=== PATIENT | female | born 1955 | race Caucasian/White ===

== ENCOUNTER → 2018-03-11 06:57 | Outpatient (CLI) | payer OTHER, SELFPAY | PROVIDERS: Family Provider Nurse Practitioner Family; PCP Nurse Practitioner Family; Visit Provider Nurse Practitioner Family | DX: Z12.31 Encounter for screening mammogram for malignant neoplasm of breast (principal) | CPT/HCPCS: 77063; 77067 ==

== ENCOUNTER → 2019-02-27 | Outpatient (CLI) | payer OTHER, SELFPAY ==
[2019-02-27 08:44] LABS: Absolute Neutrophil Count 1.4 X10^3/uL (2.0-7.7); Basophil# 0.01 X10^3/uL; Basophil% 0.3 % (0-1); Eosinophil# 0.02 X10^3/uL; Eosinophils% 0.5 % (0-5); Hematocrit 38.1 % (37-47); Hemoglobin 12.9 g/dL (12.0-15.0); Lymphocyte % 48.4 % (19-41); Mean Corp Hgb Conc 33.9 g/dL (32-36); Mean Corpuscular Hgb 32.2 pg (27.0-32.0); Mean Platelet Vol. 9.2 fl (6.2-12.0); Monocyte# 0.45 X10^3/uL; Monocyte% 12.1 % (0-10); NRBC Flagged by Analyzer 0 % (0-5); Neutrophil # 1.44 X10^3/uL (2.7-7.7); Neutrophil % 38.7 % (47-70); Platelet Count 126 K/mm3 (150-450); RBC Distribution Width CV 12.6 % (11.6-14.6); RBC Distribution Width SD 43.8 fl (35.1-43.9); Red Blood Count 4.01 M/mm3 (4.2-5.4); White Blood Count 3.7 K/mm3 (4.4-11.0)
[2019-02-27 09:20] LABS: ALB/GLOB Ratio 1.1 RATIO (0.9-2.4); AST(SGOT) 16 U/L (15-37); Alanine Aminotransfer ALT/SGPT 25 U/L (13-56); Albumin, Serum 3.8 g/dL (3.2-5.0); Alkaline Phosphatase 67 U/L (45-117); Anion Gap 6 (5-15); BUN 12 mg/dL (7-18); BUN/Creat Ratio 13.7 RATIO (10-20); Calcium,Total 8.6 mg/dL (8.5-10.1); Chloride 106 mmol/L (98-107); Cholesterol 170 mg/dL (200); Creatinine, Serum 0.88 mg/dL (0.55-1.02); EST Glomerular Filtration Rate 70 mL/min (>60); Est Glom Filt Rate - Afr Amer 84 mL/min (>60); Globulin 3.5 g/dL (2.2-4.2); Glucose 101 mg/dL (74-106); High Density Lipoprotein 52 mg/dL; Potassium 3.9 mmol/L (3.5-5.1); Protein, Total 7.3 g/dL (6.4-8.2); Sodium Level 140 mmol/L (136-145); Thyroid Stim Hormone (TSH) 1.64 uIU/mL (0.358-3.74); Triglycerides 145 mg/dL; Very Low Density Lipoprotein 29 mg/dL (5-40); Vitamin D,25 Hydroxy 68.6 ng/mL (29.95-100.01)
== END | disposition home or self-care (01) ==
LOC: LAB.FUTURE 08:12
PROVIDERS: Family Provider Nurse Practitioner Family; PCP Nurse Practitioner Family; Referring Provider Nurse Practitioner Family; Visit Provider Nurse Practitioner Family
DX: E55.9 Vitamin D deficiency, unspecified (principal); E03.9 Hypothyroidism, unspecified; I10 Essential (primary) hypertension; E78.5 Hyperlipidemia, unspecified
CPT/HCPCS: 36415; 80053; 80061; 82306; 84439; 84443; 85025

== ENCOUNTER → 2019-09-08 07:48 | Outpatient (CLI) | payer OTHER, SELFPAY ==
[2019-09-08 08:42] LABS: Hematocrit 37.3 % (37-47); Hemoglobin 12.8 g/dL (12.0-15.0); Mean Corp Hgb Conc 34.3 g/dL (32-36); Mean Corpuscular Hgb 31.8 pg (27.0-32.0); Mean Corpuscular Volume 92.8 fL (81-99); Mean Platelet Vol. 9.5 fl (6.2-12.0); Platelet Count 147 K/mm3 (150-450); RBC Distribution Width CV 12.4 % (11.6-14.6); RBC Distribution Width SD 42.5 fl (35.1-43.9); Red Blood Count 4.02 M/mm3 (4.2-5.4); White Blood Count 4.4 K/mm3 (4.4-11.0)
[2019-09-08 09:10] LABS: ALB/GLOB Ratio 1.1 RATIO (0.9-2.4); AST(SGOT) 13 U/L (15-37); Alanine Aminotransfer ALT/SGPT 27 U/L (13-56); Albumin, Serum 3.9 g/dL (3.2-5.0); Alkaline Phosphatase 70 U/L (45-117); Anion Gap 4 (5-15); BUN 13 mg/dL (7-18); BUN/Creat Ratio 14.8 RATIO (10-20); Calcium,Total 8.6 mg/dL (8.5-10.1); Chloride 106 mmol/L (98-107); Cholesterol 177 mg/dL (200); Creatinine, Serum 0.88 mg/dL (0.55-1.02); EST Glomerular Filtration Rate 69 mL/min (>60); Est Glom Filt Rate - Afr Amer 84 mL/min (>60); Globulin 3.5 g/dL (2.2-4.2); Glucose 98 mg/dL (74-106); High Density Lipoprotein 48 mg/dL; Potassium 3.9 mmol/L (3.5-5.1); Protein, Total 7.4 g/dL (6.4-8.2); Sodium Level 141 mmol/L (136-145); T4 Free Direct 0.96 ng/dL (0.76-1.46); Thyroid Stim Hormone (TSH) 1.31 uIU/mL (0.358-3.74); Triglycerides 135 mg/dL; Very Low Density Lipoprotein 27 mg/dL (5-40)
[2019-09-09 08:52] LABS: Vitamin D,25 Hydroxy 88.3 ng/mL
== END ==
PROVIDERS: PCP Nurse Practitioner Family; Referring Provider Nurse Practitioner Family; Visit Provider Nurse Practitioner Family
DX: I10 Essential (primary) hypertension (principal); E03.9 Hypothyroidism, unspecified; E78.5 Hyperlipidemia, unspecified; E55.9 Vitamin D deficiency, unspecified
CPT/HCPCS: 36415; 80053; 80061; 82306; 84439; 84443; 85027

== ENCOUNTER → 2019-09-17 15:27 | Outpatient (CLI) | payer OTHER, SELFPAY ==
--- NOTE | 2019-09-17 15:30 | BI_ITS ---
MAMMOGRAPHY - BILATERAL SCREENING REASON FOR EXAM: Female, 64 years old. Routine annual screening examination. PERTINENT HISTORY: Non-contributory. TECHNIQUE: Digital bilateral breast paz (3D mammographic acquisition) in the CC and MLO projections. 2-D mediolateral oblique (MLO) and craniocaudad (CC) views of both breasts were obtained. CAD: Full Field Digital Mammography with Computer Added Detection was performed. COMPARISON: Comparison is made with prior examination dated March 11, 2018. FINDINGS: Breast Composition: The breasts are heterogeneously dense, which may obscure small masses. There are no dominant masses or suspicious calcifications. 2 tissue markers are seen in the left breast. One is located in the upper deep lateral and the second is in the upper mid medial portion of the left breast. Stable benign-appearing bilateral axillary lymph nodes. No other significant abnormalities are identified. There has been no significant change since the prior study. BI/SCREEN MAMM (CAD) W/PAZ BILAT IMPRESSION: Stable bilateral screening mammogram. Yearly follow-up mammogram recommended. (A) ASSESSMENT CATEGORY: BIRADS Category 2: Benign. A letter regarding these results will be sent to the patient by the facility within 30 days. Approximately 10% of breast cancers are not detected by mammography. A normal mammogram should not delay biopsy of a clinically suspicious abnormality. [id number] Electronically Signed: Cesario Tavares, at 9:16 EST , Service support ,
== END ==
PROVIDERS: PCP Nurse Practitioner Family; Referring Provider Nurse Practitioner Family; Visit Provider Nurse Practitioner Family
DX: Z12.31 Encounter for screening mammogram for malignant neoplasm of breast (principal)
CPT/HCPCS: 77063; 77067

== ENCOUNTER → 2020-03-11 08:05 | Outpatient (CLI) | payer OTHER, SELFPAY ==
[2020-03-11 09:14] LABS: Hemoglobin 13.1 g/dL (12.0-15.0); Mean Corp Hgb Conc 33.6 g/dL (32-36); Mean Corpuscular Volume 95.4 fL (81-99); Mean Platelet Vol. 9.5 fl (6.2-12.0); Platelet Count 161 K/mm3 (150-450); RBC Distribution Width CV 12.6 % (11.6-14.6); RBC Distribution Width SD 43.8 fl (35.1-43.9); Red Blood Count 4.09 M/mm3 (4.2-5.4); White Blood Count 4.5 K/mm3 (4.4-11.0)
[2020-03-11 09:37] LABS: Vitamin D,25 Hydroxy 87.9 ng/mL
[2020-03-11 09:40] LABS: ALB/GLOB Ratio 1.1 RATIO (0.9-2.4); AST(SGOT) 14 U/L (15-37); Alanine Aminotransfer ALT/SGPT 24 U/L (13-56); Alkaline Phosphatase 78 U/L (45-117); Anion Gap 4 (5-15); BUN 11 mg/dL (7-18); BUN/Creat Ratio 13.3 RATIO (10-20); Calcium,Total 8.6 mg/dL (8.5-10.1); Chloride 104 mmol/L (98-107); Cholesterol 187 mg/dL (200); Creatinine, Serum 0.83 mg/dL (0.55-1.02); EST Glomerular Filtration Rate 74 mL/min (>60); Est Glom Filt Rate - Afr Amer 89 mL/min (>60); Globulin 3.5 g/dL (2.2-4.2); Glucose 105 mg/dL (74-106); High Density Lipoprotein 48 mg/dL; Potassium 4.2 mmol/L (3.5-5.1); Protein, Total 7.5 g/dL (6.4-8.2); Sodium Level 139 mmol/L (136-145); Thyroid Stim Hormone (TSH) 4.97 uIU/mL (0.358-3.74); Triglycerides 151 mg/dL; Very Low Density Lipoprotein 30 mg/dL (5-40)
[2020-03-11 09:48] LABS: Microalbumin,Random Urine 41.6 mg/L (NO RANGE EST.); Microalbumin:Creatinine Ratio 27.2 mg/g CRE (<30 mg/g CRE)
== END ==
PROVIDERS: PCP Nurse Practitioner Family; Referring Provider Nurse Practitioner Family; Visit Provider Nurse Practitioner Family
DX: I10 Essential (primary) hypertension (principal); E03.9 Hypothyroidism, unspecified; E78.5 Hyperlipidemia, unspecified; E55.9 Vitamin D deficiency, unspecified
CPT/HCPCS: 36415; 80053; 80061; 82043; 82306; 82570; 84439; 84443; 85027

== ENCOUNTER 2020-05-31 19:36 | Inpatient (IN) | payer OTHER, SELFPAY ==
[2020-05-31] VITALS (9 sets, daily range): BP systolic 113–159; BP diastolic 71–90; PULSE 76–107; RESP 16–27; TEMP 37.2–38.9; O2SAT 86–96; BMI 32.5; BMI 30.4
[2020-05-31] MEDS: Ondansetron 4 MG/2 ML Vial IV (20:15)
[2020-05-31] MEDS: Acetaminophen 500 MG Tablet 1000 MG PO (20:18)
--- NOTE | 2020-05-31 20:30 | RAD_ITS ---
STUDY: X-RAY CHEST REASON FOR EXAM: Female, 65 years old. INCREASED SOB. PATIENTS TESTED POSITIVE COVID ON SUNDAY. TECHNIQUE: AP portable COMPARISON: None. FINDINGS: There is interstitial thickening with diffusely increased density in the right lower lobe and more severe in the left lower lobe consistent with Covid 19 pneumonia There is no demonstrated pleural abnormality. Normal size heart. Normal mediastinum and dc. Normal visualized pulmonary arteries. Normal visualized aortic arch and descending thoracic aorta. Normal visualized thoracic spine. Normal visualized ribs, clavicles, and shoulders. There is no demonstrated abnormality of the visualized soft tissue structures of the upper abdomen. RAD/Chest 1 View (Portable) IMPRESSION: Findings consistent with Covid 19 pneumonia in the lower lobes more severe on the left. Electronically Signed: Dayton Lugo MD at 20:55 EST , Service support ,
[2020-05-31 20:37] LABS: Absolute Lymphocyte Count 1.08 X10^3/uL (0.83-4.51); Absolute Neutrophil Count 3.5 X10^3/uL (2.0-7.7); Hematocrit 39.1 % (37-47); Lymphocyte # 1.08 X10^3/ul (4.0); Lymphocyte % 22.1 % (19-41); Mean Corp Hgb Conc 33.2 g/dL (32-36); Mean Corpuscular Hgb 31.4 pg (27.0-32.0); Mean Corpuscular Volume 94.4 fL (81-99); Mean Platelet Vol. 9.4 fl (6.2-12.0); Monocyte# 0.28 X10^3/uL; Monocyte% 5.7 % (0-10); NRBC Flagged by Analyzer 0 % (0-5); Neutrophil # 3.51 X10^3/uL (2.7-7.7); Neutrophil % 71.8 % (47-70); Platelet Count 127 K/mm3 (150-450); RBC Distribution Width CV 12.3 % (11.6-14.6); Red Blood Count 4.14 M/mm3 (4.2-5.4); White Blood Count 4.9 K/mm3 (4.4-11.0)
[2020-05-31 20:51] LABS: Lactic Acid 1.2 mmol/L (0.4-1.9)
[2020-05-31 21:03] LABS: ALB/GLOB Ratio 0.8 RATIO (0.9-2.4); AST(SGOT) 23 U/L (15-37); Alanine Aminotransfer ALT/SGPT 22 U/L (13-56); Albumin, Serum 3.3 g/dL (3.2-5.0); Alkaline Phosphatase 51 U/L (45-117); Anion Gap 9 (5-15); BUN 14 mg/dL (7-18); BUN/Creat Ratio 16.7 RATIO (10-20); CPK Total, Creatine Kinase 53 U/L (26-192); Calcium,Total 8.6 mg/dL (8.5-10.1); Chloride 103 mmol/L (98-107); Creatinine, Serum 0.84 mg/dL (0.55-1.02); EST Glomerular Filtration Rate 73 mL/min (>60); Est Glom Filt Rate - Afr Amer 88 mL/min (>60); Globulin 4.3 g/dL (2.2-4.2); Glucose 100 mg/dL (74-106); LDH 332 U/L (84-246); Potassium 3.6 mmol/L (3.5-5.1); Protein, Total 7.6 g/dL (6.4-8.2); Sodium Level 138 mmol/L (136-145)
[2020-05-31 21:10] LABS: Fibrinogen 636 mg/dl (203-444)
[2020-05-31 21:12] LABS: D-Dimer Quantitative (DVT/PE) 0.42 FEU/ug/m (0.27-0.49)
[2020-05-31 21:18] LABS: Procalcitonin 0.06 ng/mL (0.00-0.09)
[2020-05-31 21:29] LABS: Probe Check PASS; Specimen Processing Control PASS
--- NOTE | 2020-05-31 21:32 | ED.VISSUMM ---
- ER Visit Summary Date of Service: 05/31/20 Chief Complaint: Cough History of Present Illness: The patient is a 65 F who sees Cem Dickinson. She reports that she has a cough began 2 days ago. She reports that her tested positive for Covid on . Patient states that she is had a fever to 100 degrees. She also had chills. She has chest pain with coughing only. She reports she has severe shortness of breath. She had nausea without vomiting or abdominal pain. No diarrhea. She complains of a sharp headache that 6 out of 10 in severity and generalized weakness. Physical Examination: Vitals: 112.1, 139/87, 107, 24, 91% on room air which is not hypoxic General: Well-nourished and well-developed. Head: Normocephalic atraumatic. Neck: Supple, no lymphadenopathy. No JVD. Nontender. Cardiovascular: Tachycardic regular rhythm. No murmurs. Respiratory: Moderate respiratory distress with crackles at the bases bilaterally. Abdominal: Soft, nontender, nondistended, normal bowel sounds. No guarding, rebound, or peritoneal signs. Back: Nontender. Extremities: Nontender, no edema. Skin: Normal color, no rash. Neurologic: Alert and oriented ?3. Cranial nerves II through XII are intact. Normal strength and sensation. Psych: Normal affect. Test Results: CBC shows platelets 127, second neutrophils 72. Chem-7 is normal. LFTs show globulin 4.3 and LDH of 332. D-dimer is negative. CRP is 71.8. Fibrinogen level 636. Procalcitonin 0.06. COVID-19 test is positive. Clinical Impression(s) from Imaging Studies Chest X-Ray 05/31/20 20:30 IMPRESSION: Findings consistent with Covid 19 pneumonia in the lower lobes more severe on the left. Electronically Signed: Dayton Lugo MD at 20:55 EST , Service support , Emergency Department Course and Treatment: Patient was given Tylenol p.o. for her fever. She was given Zofran and dexamethasone IV. Pulse ox was 84% on room air with ambulation. She is in the mid 90s on 2 L. She is resting more comfortably. Treatment Plan: Patient was discussed with Dr. Vieira. She will be admitted to the hospital for further evaluation and treatment. Disposition: Admitted in improved, but serious condition. Impression: 1. COVID-19 positive. 2. Hypoxia. This note was generated with [employer] dictation software. It may contain incorrect words, spelling, and punctuation that were not noted in review of the chart prior to signing ED Disposition - Plan for ED Patient:
[2020-05-31] MEDS: dexAMETHasone 4 MG/ML Vial 6 MG IV (21:47)
--- NOTE | 2020-05-31 22:03 | HP.PCM_ITS ---
Problem List (1) Pneumonia due to 2019 novel coronavirus Status: Acute (2) Hypoxia Status: Acute (3) HTN (hypertension) Status: Chronic Qualifiers: Hypertension type: essential hypertension Qualified Code(s): I10 - Essential (primary) hypertension (4) HLD (hyperlipidemia) Status: Chronic Qualifiers: Hyperlipidemia type: unspecified Qualified Code(s): E78.5 - Hyperlipidemia, unspecified (5) Hypothyroidism Status: Chronic Qualifiers: Hypothyroidism type: unspecified Qualified Code(s): E03.9 - Hypothyroidism, unspecified History of Present Illness Date of Admission: 05/31/20 Chief Complaint: Dyspnea, cough, presumptive positive COVID The patient is a 65 y/o F w/ PMHx: Obesity, Hypothyroidism, HTN, HLD who presents to the [facility] ED on 05/31/20 with history of onset frontal throbbing headache, body aches, worse bilateral shoulders and neck, nausea with no emesis or diarrhea, dry cough with dyspnea progressively worsening with fevers with onset approximately 05/24/2010 with onset of symptoms the prior diagnosed with Covid therefore she was a presumed positive although she did see her physician on 05/25/2020 who gave for steroids and a Z-Deric at that time but she had no improvement. Patient never had any alteration to sense of taste or smell. Given her 's worsening status and her own worsening status patient presented to the ED for evaluation. 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 She notes that both her and her have been wearing masks. Work- up in the ED included T1 102.1, heart rate 107, BP 139/87, respiratory rate 24, 91% on room air with gently noted 84% on room air with ambulation with imp rovement to 96 on 2 L nasal cannula, CBC with WC 4.9, hemoglobin 13, platelet 127 without marked shift, D-dimer 0.42, fibrinogen 636, CMP not marked appearing, lactic acid 1.2, LDH 332, total creatinine kinase 53, CRP 71.80, procalcitonin 0.06, Covid positive, blood culture x2 pending per ED, chest x-ray with findings consistent with COVID-19 pneumonia in the lower lobes more severe on the left. In the ED patient ministered Zofran, Tylenol, Decadron 6 mg IV x1. Past Medical History Past Medical History (Chronic Problems): Chronic Problems HTN (hypertension) (Chronic) HLD (hyperlipidemia) (Chronic) Hypothyroidism (Chronic) Allergies clindamycin Adverse Reaction (Verified 05/31/20 19:40) Hives combid Adverse Reaction (Uncoded 05/31/20 19:40) NEEDS FOLLOW-UP almost killed me Home Medications: Ambulatory Orders Medication Instructions Recorded Azithromycin 500 mg PO DAILY 05/31/20 Levothyroxine [Synthroid] 112 mcg PO DAILY 05/31/20 Methylprednisolone [Medrol] 4 mg PO DAILY 05/31/20 Simvastatin 20 mg PO DAILY 05/31/20 Zinc Sulfate 220 mg PO DAILY 05/31/20 Surgical History: - - Total abdominal hysterectomy with bilateral salpingo- oophorectomy and right knee arthroscopic surgery. Psychiatric History: No pertinent psych hx RESIDENTIAL TREATMENT STAFF History: - - History of total abdominal hysterectomy with bilateral salpingo-oophorectomy secondary to tumor, unclear type. Lives: Spouse/ Significant Other Smoking Status: Never smoker Tobacco Use: Non-smoker Alcohol: None Drugs: None - *Family History Maternal History Items: Pulmonary Disease - Patient notes her mother passed secondary to a history of lung cancer with significant tobacco use history. Paternal History Items: Heart Disease Review of Systems Constitutional: Reports: Anorexia, Fever, Malaise, Weakness, Fatigue. Denies: Chills, Weight Change HEENT: Reports: Head Aches. Denies: Sinus Congestion, Sinus Drainage Cardiovascular: Denies: Chest Pain, Palpitations Respiratory: Reports: Cough, Shortness of Breath, Shortness of breath at rest, Shortness of breath upon exertion. Denies: Sputum production Gastrointestinal: Reports: Nausea. Denies: Abdominal Pain, Vomiting Genitourinary: Denies: Dysuria Musculoskeletal: Reports: Back Pain, Joint Pain, Neck Pain, Shoulder Pain. Denies: Joint Tenderness Skin: Denies: Rash, Wounds Neurological: Denies: Numbness, Tingling, Focal weakness Psychiatric: Denies: Anxiety, Depression, Homicidal Ideations, Suicidal Ideations Hematologic/ Lymphatic: Denies: Easy Bruising, Easy Bleeding VTE Information - Inpt Only VTE Present on Admission: No VTE Mechan Device Prophylaxis: SCD's VTE Pharm Prophylaxis ordered?: Yes Subjective: Patient seated upright in ED bed, fatigued appearance otherwise no acute distress. Objective: Physical Examination: General: awake, alert, oriented x 3 and cooperative, seated upright in the ED bed, fatigued and ill-appearing. Skin: normal color, turgor, no icterus, cyanosis. HEENT: AT/NC, EOMI, PERRLA, dry MM, no carotid bruits or JVD noted. Lungs: Diminished breath sounds, greater bases, left greater than right, mildly increased respiratory rate but no overt distress, no rales, ronchi or wheezing. Heart: Mildly tachycardic with regular rhythm; no gallop, rub audible. Abdomen: soft, obese, NTTP, ND, normal BS, no HSM. Extremities: no cyanosis, clubbing, or edema. Neurological: patient awake, alert, oriented x 3; cognitive function intact; pupils equally reactive to light and accomodation; cranial nerves II-XII grossly normal, moving all 4 extremities, no focal deficits, strength moderately to severely globally decreased secondary to acute presentation. Psychiatric: affect appears fatigued, no acute evidence of depressive or anxiety feelings. - Physical Exam Vitals/I&O's: Vital Signs Temp Pulse Resp BP Pulse Ox 102.1 F H 78 16 159/90 H 96 05/31/20 19:37 05/31/20 21:09 05/31/20 21:09 05/31/20 21:09 05/31/20 21:09 Oxygen Flow Rate (L/min) 2 Oxygen Delivery Method Nasal Cannula Weight: 190 lb Body Mass Index (BMI) 32.5 Laboratory Results 05/31/20 20:05: COVID-19 ([facility]) Positive 05/31/20 20:10: Fibrinogen 636 H, D-Dimer Quant (PE/DVT) 0.42 05/31/20 20:10: Sodium 138, Potassium 3.6, Chloride 103, Carbon Dioxide 26.0, Anion Gap 9, BUN 14, Creatinine 0.84, Estim Creat Clear Calc 59.20, Est GFR (MDRD) Af Amer 88, Est GFR (MDRD) Non-Af 73, BUN/Creatinine Ratio 16.7, Glucose 100, Calcium 8.6, Total Bilirubin 0.40, AST 23, ALT 22, Alkaline Phosphatase 51, Lactate Dehydrogenase 332 H, Total Creatine Kinase 53, C-React Prot Ext Range 71.80 H, Total Protein 7.6, Albumin 3.3, Globulin 4.3 H, Albumin/Globulin Ratio 0.8 L 05/31/20 20:10: Procalcitonin 0.06 05/31/20 20:10: WBC 4.9, RBC 4.14 L, Hgb 13.0, Hct 39.1, MCV 94.4, MCH 31.4, MCHC 33.2, RDW Std Deviation 43.0, RDW Coeff of Osvaldo 12.3, Plt Count 127 L, MPV 9.4, Immature Gran % (Auto) 0.400, Neut % (Auto) 71.8 H, Lymph % (Auto) 22.1, Kent % (Auto) 5.7, Eos % (Auto) 0.0, Baso % (Auto) 0.0, Absolute Neuts (auto) 3.5, Absolute Lymphs (auto) 1.08, Nucleated RBC % 0 05/31/20 20:10: Lactic Acid 1.2 Assessment/Plan All Active Problems Pneumonia due to 2019 novel coronavirus (Acute) Hypoxia (Acute) The patient is a 65 y/o F w/ PMHx: Obesity, Hypothyroidism, HTN, HLD who presents to the [facility] ED on 05/31/20 with history of onset frontal throbbing headache, body aches, worse bilateral shoulders and neck, nausea with no emesis or diarrhea, dry cough with dyspnea progressively worsening with fevers with onset approximately 05/24/2010, progressively worsening. 1. Acute Hypoxia secondary to Bilateral Pneumonia secondary to Acute Viral Syndrome, COVID-19: Will admit to the COVID unit, will maintain on oxygen with wean as tolerated to room air, HOB, IS parameters, requested viral panel, given worsened status with presentation will obtain QOD procalcitonin, CRP, CPK, Ferritin, LDH, continue Decadron 6 mg with a total of 10 doses, continue supportive care including q 2 hour turning including prone given no prone bed av ailability and judicious hydration, closely monitor for worsening status for ARDS and multiorgan failure. Infectious disease consulted, pending. 2. Hypothyroidism: Continue home synthroid regimen. 3. Hypertension: Continue home regimen including amlodipine, benazepril, PRN hydralazine. 4. Hyperlipidemia: Continue home statin regimen. 5. Obesity: Weight loss and lifestyle changes encouraged. 6. DVT prophylaxis: SCDs, Lovenox. 7. CODE status: Patient HCPOA is her spouse and living will is currently in place. Discussed CODE status at length including difference between FULL code, D NR-CCA and DNR-CC status. Following discussions about the differences in these status, requested Full Code status. Advanced Care Planning Face to Face Time: 16 minutes. Inpatient E&M: 29401 Init Hosp L3 Procedures: 21888 Advncd Care Plan 30 Min
[2020-05-31] MEDS: Ketorolac 15 MG/ML Vial IV (23:50)
[2020-05-31] MEDS: tiZANidine HCl 2 MG Tablet PO (23:50)
[2020-05-31] MEDS: 0.9% Saline Lock 10 ML Syringe IV (23:55)
[2020-06-01] VITALS (15 sets, daily range): BP systolic 103–126; BP diastolic 60–73; PULSE 55–81; RESP 18–20; TEMP 36.6–37.2; O2SAT 90–95; BMI 30.4
[2020-06-01 07:18] LABS: Absolute Lymphocyte Count 0.64 X10^3/uL (0.83-4.51); Absolute Neutrophil Count 3.3 X10^3/uL (2.0-7.7); Hematocrit 40.2 % (37-47); Lymphocyte # 0.64 X10^3/ul (4.0); Lymphocyte % 15.4 % (19-41); Mean Corp Hgb Conc 32.3 g/dL (32-36); Mean Corpuscular Hgb 31.3 pg (27.0-32.0); Mean Corpuscular Volume 96.9 fL (81-99); Mean Platelet Vol. 9.7 fl (6.2-12.0); Monocyte# 0.17 X10^3/uL; Monocyte% 4.1 % (0-10); NRBC Flagged by Analyzer 0 % (0-5); Neutrophil # 3.33 X10^3/uL (2.7-7.7); Neutrophil % 80.3 % (47-70); Platelet Count 119 K/mm3 (150-450); RBC Distribution Width CV 12.5 % (11.6-14.6); RBC Distribution Width SD 44.7 fl (35.1-43.9); Red Blood Count 4.15 M/mm3 (4.2-5.4); White Blood Count 4.2 K/mm3 (4.4-11.0)
--- NOTE | 2020-06-01 07:22 | PN_ITS ---
Patient Problems: Active and Suspected Problems Pneumonia due to 2019 novel coronavirus (Acute) Hypoxia (Acute) Reason for Visit: Patient is a 65-year-old lady diagnosed with COVID-19 on 05/24/2020 presented with progressive shortness of breath with associated cough had apparently been diagnosed with COVID-19 almost a week prior. Her serology test in the ED came back positive admitted to a monitored bed for further management Subjective: Patient is a 65-year-old lady diagnosed with COVID-19 on 05/24/2020 presented with progressive shortness of breath with associated cough had apparently been diagnosed with COVID-19 almost a week prior. Her serology test in the ED came back positive admitted to a monitored bed for further management Objective: GENERAL: cooperative HEENT: Atraumatic; EYES; Anicteric, Normal Conjunctiva NECK; supple, normal thyroid, RESPIRATORY: Diminished to auscultation CARDIOVASCULAR: Regular S1 S2, GI: soft, normoactive bowel sounds, : No Renal angle tenderness; EXTREMITIES: No edema, no clubbing, MUSCULOSKELETAL: no muscle waisting NEURO: Awake; no lateralizing signs. SKIN: No Rash PSYCH; Flat affect Vitals/I&O's: Vital Signs Temp Pulse Resp BP Pulse Ox 97.8 F 62 18 105/60 90 06/01/20 06:55 06/01/20 06:55 06/01/20 06:55 06/01/20 06:55 06/01/20 06:55 Oxygen Flow Rate (L/min) 3 Oxygen Delivery Method Nasal Cannula Weight: 80.4 kg Body Mass Index (BMI) 30.4 Intake and Output for Last 24 Hours 05/30/20 05/31/20 06/01/20 23:59 23:59 23:59 Intake Total 200 / 200 Balance 200 / 200 Microbiology Past 72 Hours 05/31/20 20:05 Mucosa - Nose Respiratory Panel (PCR) - Final Laboratory Results 05/31/20 20:05: COVID-19 ([facility]) Positive 05/31/20 20:10: Fibrinogen 636 H, D-Dimer Quant (PE/DVT) 0.42 05/31/20 20:10: Sodium 138, Potassium 3.6, Chloride 103, Carbon Dioxide 26.0, Anion Gap 9, BUN 14, Creatinine 0.84, Estim Creat Clear Calc 59.20, Est GFR (MDRD) Af Amer 88, Est GFR (MDRD) Non-Af 73, BUN/Creatinine Ratio 16.7, Glucose 100, Calcium 8.6, Total Bilirubin 0.40, AST 23, ALT 22, Alkaline Phosphatase 51, Lactate Dehydrogenase 332 H, Total Creatine Kinase 53, C-React Prot Ext Range 71.80 H, Total Protein 7.6, Albumin 3.3, Globulin 4.3 H, Albumin/Globulin Ratio 0.8 L 05/31/20 20:10: Procalcitonin 0.06 05/31/20 20:10: WBC 4.9, RBC 4.14 L, Hgb 13.0, Hct 39.1, MCV 94.4, MCH 31.4, MCHC 33.2, RDW Std Deviation 43.0, RDW Coeff of Osvaldo 12.3, Plt Count 127 L, MPV 9.4, Immature Gran % (Auto) 0.400, Neut % (Auto) 71.8 H, Lymph % (Auto) 22.1, Elmore % (Auto) 5.7, Eos % (Auto) 0.0, Baso % (Auto) 0.0, Absolute Neuts (auto) 3.5, Absolute Lymphs (auto) 1.08, Nucleated RBC % 0 05/31/20 20:10: Lactic Acid 1.2 06/01/20 06:15: WBC 4.2 L, RBC 4.15 L, Hgb 13.0, Hct 40.2, MCV 96.9, MCH 31.3, MCHC 32.3, RDW Std Deviation 44.7 H, RDW Coeff of Osvaldo 12.5, Plt Count 119 L, MPV 9.7, Immature Gran % (Auto) 0.200, Neut % (Auto) 80.3 H, Lymph % (Auto) 15.4 L, Elmore % (Auto) 4.1, Eos % (Auto) 0.0, Baso % (Auto) 0.0, Absolute Neuts (auto) 3.3, Absolute Lymphs (auto) 0.64 L, Nucleated RBC % 0 06/01/20 06:15: Sodium Pending, Potassium Pending, Chloride Pending, Carbon Dioxide Pending, Anion Gap Pending, BUN Pending, Creatinine Pending, Est GFR (MDRD) Af Amer Pending, Est GFR (MDRD) Non-Af Pending, BUN/Creatinine Ratio Pending, Glucose Pending, Calcium Pending, Ferritin Pending, Total Bilirubin Pending, AST Pending, ALT Pending, Alkaline Phosphatase Pending, C-React Prot Ext Range Pending, Total Protein Pending, Albumin Pending 06/01/20 06:15: D-Dimer Quant (PE/DVT) Pending 06/01/20 06:15: Procalcitonin Pending Current Medications Acetaminophen (Acetaminophen 325 Mg Tablet) 650 mg PO Q6H PRN PRN PRN Reason: Pain Score 1-10/Temp > 100.7 F Al Hydroxide/Mg Hydroxide (Mag Hydrox/Al Hydrox/Simeth 30 Ml Udc) 30 ml PO Q6H PRN PRN PRN Reason: Gastric Burning Albuterol Sulfate (Albuterol Sulfate 18 Gm Inhaler (200 Puffs)) 1 puff IH Q2H PRN PRN PRN Reason: Dyspnea, wheezing Amlodipine Besylate (Amlodipine 5 Mg Tablet) 5 mg PO DAILY [facility] Atorvastatin Calcium (Atorvastatin Calcium 10 Mg Tablet) 10 mg PO DAILY@2200 [facility] Dexamethasone Sodium Phosphate (Dexamethasone 10 Mg/Ml Vial) 6 mg IV DAILY [facility] Stop: 06/10/20 10:01 Enoxaparin Sodium (Enoxaparin 30 Mg/0.3 Ml Syringe) 30 mg SC BID [facility] Guaifenesin (Guaifenesin 10 Ml Udc (200mg/10ml)) 20 ml PO Q4H PRN PRN PRN Reason: COUGH Hydralazine HCl (Hydralazine 20 Mg/Ml Vial) 10 mg IV Q4H PRN PRN PRN Reason: SBP > 160 Sodium Chloride () 250 mls @ 15 mls/hr IV .[id number] PRN PRN Reason: Saline Flush Sodium Chloride () 250 mls @ 15 mls/hr IV .[id number] PRN PRN Reason: Additional IVPB Infusion Levothyroxine Sodium (Levothyroxine 112 Mcg Tablet) 112 mcg PO DAILY [facility] Lisinopril (Lisinopril 10 Mg Tablet) 10 mg PO DAILY [facility] Melatonin (Melatonin 3 Mg Tablet) 3 mg PO QHS PRN PRN PRN Reason: INSOMNIA Miscellaneous Information (Inhaler, Assist Devices 1 Each Spacer) 1 each INHALATION PRN PRN PRN Reason: WITH ALBUTEROL INHALER Morphine Sulfate (Morphine 2 Mg/Ml Syringe) 2 mg IV Q3H PRN PRN PRN Reason: Pain Score 6-10 Nutritional Formula (Lactose Free) (Ensure Enlive 120 Ml Liquid) 120 ml PO 4X/DAYCM GIULIANO Ondansetron HCl (Ondansetron 4 Mg/2 Ml Vial) 4 mg IV Q8H PRN PRN PRN Reason: NAUSEA/VOMITING Oxycodone HCl (Oxycodone 5 Mg Tablet) 5 mg PO Q4H PRN PRN PRN Reason: Pain Score 4-5 Prochlorperazine Edisylate (Prochlorperazine 10 Mg/2 Ml Vial) 5 mg IV Q4H PRN PRN PRN Reason: Breakthrough nausea/vomiting Sodium Chloride (0.9% Saline Lock 10 Ml Syringe) 10 - 40 ml IV UD PRN PRN Reason: SALINE FLUSH Last Admin: 05/31/20 23:55 Dose: 10 ml Documented by: Throat Lozenges (Benzocaine/Menthol 1 Lozenge) 1 lozenge MUCOUS MEM Q2H PRN PRN PRN Reason: SORE THROAT Zinc Sulfate (Zinc Sulfate (50mg Elemental) 220 Mg Capsule) 220 mg PO DAILY GIULIANO STROKE Vital Signs/Narrative: Vital Signs Temp Pulse Resp BP Pulse Ox 06/01/20 06:55 97.8 F 62 18 105/60 90 06/01/20 06:00 55 L 06/01/20 04:35 20 H 93 06/01/20 04:03 97.9 F 60 20 H 103/66 93 Medical Necessity - Tobacco Use Smoking Status: Never smoker Tobacco Use: Non-smoker Assessment/Plan All Active Problems Pneumonia due to 2019 novel coronavirus (Acute) Hypoxia (Acute) Patient is a 65-year-old lady diagnosed with COVID-19 on 05/24/2020 presented with progressive shortness of breath with associated cough had apparently been diagnosed with COVID-19 almost a week prior. Her serology test in the ED came back positive admitted to a monitored bed for further management 1. Acute COVID-19 pneumonitis ?Patient admitted to a monitored bed started on Decadron and supplemental oxygen with consultation placed to infectious disease and pulmonary medicine 2. Hypothyroidism - Patient is on levothyroxine home dose continued 3. Hypertension - Blood pressure controlled, home medications continued with dose adjustment as needed 4. Dyslipidemia -Patient is on statin therapy, continued at home dose 5. Morbid obesity - With a BMI of patient was counseled on weight reduction 6. DVT prophylaxis - Lovenox. Inpatient E&M: 22192 Subs Hosp L2
[2020-06-01 08:01] LABS: ALB/GLOB Ratio 0.7 RATIO (0.9-2.4); AST(SGOT) 22 U/L (15-37); Alanine Aminotransfer ALT/SGPT 20 U/L (13-56); Albumin, Serum 3.1 g/dL (3.2-5.0); Alkaline Phosphatase 49 U/L (45-117); Anion Gap 7 (5-15); BUN 20 mg/dL (7-18); BUN/Creat Ratio 22.6 RATIO (10-20); Calcium,Total 8.5 mg/dL (8.5-10.1); Chloride 103 mmol/L (98-107); Creatinine, Serum 0.88 mg/dL (0.55-1.02); EST Glomerular Filtration Rate 69 mL/min (>60); Est Glom Filt Rate - Afr Amer 83 mL/min (>60); Ferritin 735 ng/mL (8-252); Globulin 4.4 g/dL (2.2-4.2); Glucose 136 mg/dL (74-106); Protein, Total 7.5 g/dL (6.4-8.2); Sodium Level 138 mmol/L (136-145)
[2020-06-01] MEDS: amLODIPine 5 MG Tablet PO (09:00)
[2020-06-01] MEDS: Enoxaparin 30 MG/0.3 ML Syringe SC ×2 (09:00→22:05)
[2020-06-01] MEDS: dexAMETHasone 10 MG/ML Vial 6 MG IV (09:00)
[2020-06-01] MEDS: 0.9% Saline Lock 10 ML Syringe IV ×3 (09:00→22:04)
[2020-06-01] MEDS: Lisinopril 10 MG Tablet PO (09:01)
[2020-06-01] MEDS: Levothyroxine 112 MCG Tablet PO (09:01)
[2020-06-01 09:46] LABS: Procalcitonin 0.12 ng/mL (0.00-0.09)
--- NOTE | 2020-06-01 09:56 | CASEMGMT ---
Addendum entered by Shane Montoya 06/01/20 10:29: DC PLAN: Home on discharge. recommend home oxygen testing @ rest and with ambulation prior to dc. Len MCDONOUGH Original Note: RN CM Assessment Note Introduced role of CM to patient via phone. The patient was able to participate in assessment and also gave information for her . Demographics, PCP verified. No current DME or oxygen use at home. Patient is independent at home and no care needs identified. -family/friends are able to bring groceries, etc while in quarantine. - and patient are able to quarantine @ home. Diagnosis: COVID 19 PCP: EVIE Lincoln Specialists: none Insurance: MMO [facility]erred [facility]acy[facility] Benefit: yes LNOK: , Sean Bonilla (currently a patient on CVICU). No other NOK listing Living Arrangements: Lives independently at home with her . No care needs. Tranportation: drives DME: none currently. [facility] oxygen providers with MMO: [facility] Patient DC Goals: DC Plan: CM available for discharge planning coordination. Contact CM for any concerns/needs that may arise. Len MCDONOUGH
--- NOTE | 2020-06-01 11:01 | NT.THERAPY_ITS ---
Nutrition Therapy Report - History Nutrition Services has been consulted to:: Manage nutrient details of diet order Current diet / nutrition support order:: regular; ensure enlive 120mL 4x/day - Anthropometric Measurements Height:: 5 ft 4 in Weight:: 80.4 kg Body Mass Index (BMI):: 30.4 - Relevant Labs Relevant Labs:: WBC 4.2 K/mm3 (4.4-11.0) L 06/01/20 06:15 RBC 4.15 M/mm3 (4.2-5.4) L 06/01/20 06:15 RDW Std Deviation 44.7 fl (35.1-43.9) H 06/01/20 06:15 Plt Count 119 K/mm3 (150-450) L 06/01/20 06:15 Neut % (Auto) 80.3 % (47-70) H 06/01/20 06:15 Lymph % (Auto) 15.4 % (19-41) L 06/01/20 06:15 Absolute Lymphs (auto) 0.64 X10^3/uL (0.83-4.51) L 06/01/20 06:15 Fibrinogen 636 mg/dl (203-444) H 05/31/20 20:10 BUN 20 mg/dL (7-18) H 06/01/20 06:15 BUN/Creatinine Ratio 22.6 RATIO (10-20) H 06/01/20 06:15 Glucose 136 mg/dL (74-106) H 06/01/20 06:15 Ferritin 735 ng/mL (8-252) H 06/01/20 06:15 Lactate Dehydrogenase 332 U/L (84-246) H 05/31/20 20:10 C-React Prot Ext Range 95.70 mg/L (0.0-3.0) H 06/01/20 06:15 Albumin 3.1 g/dL (3.2-5.0) L 06/01/20 06:15 Globulin 4.4 g/dL (2.2-4.2) H 06/01/20 06:15 Albumin/Globulin Ratio 0.7 RATIO (0.9-2.4) L 06/01/20 06:15 Procalcitonin 0.12 ng/mL (0.00-0.09) H 06/01/20 06:15 - Assessment Food / Nutrition-Related History:: Currently in isolation d/t COVID-19. Spoke w/ pt via room phone. Pt reports poor appetite w/ limited PO intake for 1 week [employer] d/t acute illness. Has not had breakfast at time of assessment, does not feel hungry. UBW 190# and CBW 177.3#-12.7#/7.1% wt loss x 1 week, significant for malnutrition.Noted hyperglycemia- on steroid. - Nutrition Diagnosis Problem / Etiology / Signs & Symptoms (PES):: Pt w/ severe, acute malnutrition r/t inadequate energy intake w/ acute COVID-19 infection as evidenced by 12.7#/7.1% wt loss x 1 week and estimated PO intake meeting less than 50% of pt's estimated needs x 1 week [employer]. Evidence of Malnutrition Exists:: Yes Severe PCM:: Acute Illness - Nutrition Intervention Nutrition Prescription:: [phone] calories, 64-80 g protein/day - Food / Nutrient Delivery Interventions Summary of nutrition intervention:: Discussed ONS- agreeable to Ensure Enlive, would prefer vanilla flavor. Will change to TID w/ meals to cluster nursing care while in isolation. Nutrition support ordered as / adjusted to:: continue regular diet; 120mL Ensure Enlive TID w/ meals - MNT Monitoring Further MNT monitoring and evaluation required?: Yes MNT Follow-up in:: 3-5 days
[2020-06-01] MEDS: Atorvastatin Calcium 10 MG Tablet PO (22:05)
[2020-06-01] MEDS: MELATONIN 3 MG TABLET PO (22:06)
[2020-06-02] VITALS (18 sets, daily range): BP systolic 104–120; BP diastolic 66–75; PULSE 62–82; RESP 16–20; TEMP 36.6–37; O2SAT 91–96
[2020-06-02 06:09] LABS: Hematocrit 36.2 % (37-47); Hemoglobin 11.9 g/dL (12.0-15.0); Mean Corp Hgb Conc 32.9 g/dL (32-36); Mean Corpuscular Hgb 31.6 pg (27.0-32.0); Mean Corpuscular Volume 96.3 fL (81-99); Mean Platelet Vol. 9.5 fl (6.2-12.0); Platelet Count 137 K/mm3 (150-450); RBC Distribution Width CV 12.6 % (11.6-14.6); RBC Distribution Width SD 44.7 fl (35.1-43.9); Red Blood Count 3.76 M/mm3 (4.2-5.4); White Blood Count 8.4 K/mm3 (4.4-11.0)
[2020-06-02 06:50] LABS: ALB/GLOB Ratio 0.9 RATIO (0.9-2.4); AST(SGOT) 21 U/L (15-37); Alanine Aminotransfer ALT/SGPT 19 U/L (13-56); Albumin, Serum 2.9 g/dL (3.2-5.0); Alkaline Phosphatase 47 U/L (45-117); Anion Gap 7 (5-15); BUN 24 mg/dL (7-18); BUN/Creat Ratio 27.5 RATIO (10-20); Calcium,Total 8.5 mg/dL (8.5-10.1); Chloride 104 mmol/L (98-107); Creatinine, Serum 0.87 mg/dL (0.55-1.02); EST Glomerular Filtration Rate 70 mL/min (>60); Est Glom Filt Rate - Afr Amer 84 mL/min (>60); Estimated Creatinine Clearance 57.15 ml/min; Globulin 3.4 g/dL (2.2-4.2); Glucose 113 mg/dL (74-106); Potassium 4.1 mmol/L (3.5-5.1); Protein, Total 6.3 g/dL (6.4-8.2); Sodium Level 138 mmol/L (136-145)
--- NOTE | 2020-06-02 07:46 | PCM.PN.HOSP ---
Patient Problems: Active and Suspected Problems Pneumonia due to 2019 novel coronavirus (Acute) Hypoxia (Acute) Reason for Visit: COVID-19 infection Subjective: Patient was started on remdesivir by infectious disease the day prior, patient oxygen requirement had to be increased to 10 L due to hypoxia. Consult subsequently placed to pulmonary medicine Objective: GENERAL: cooperative on high flow oxygen HEENT: Atraumatic; EYES; Anicteric, Normal Conjunctiva NECK; supple, normal thyroid, RESPIRATORY: Diminished to auscultation CARDIOVASCULAR: Regular S1 S2, GI: soft, normoactive bowel sounds, : No Renal angle tenderness; EXTREMITIES: No edema, no clubbing, MUSCULOSKELETAL: no muscle waisting NEURO: Awake; no lateralizing signs. SKIN: No Rash PSYCH; Flat affect Vitals/I&O's: Vital Signs Temp Pulse Resp BP Pulse Ox 98.6 F 65 20 H 117/73 95 06/02/20 04:18 06/02/20 04:18 06/02/20 04:18 06/02/20 04:18 06/02/20 04:18 Oxygen Flow Rate (L/min) 4 Oxygen Delivery Method Nasal Cannula Weight: 80.4 kg Body Mass Index (BMI) 30.4 Intake and Output for Last 24 Hours 05/31/20 06/01/20 06/02/20 23:59 23:59 23:59 Intake Total 1087.25 / 1087.25 Balance 1087.25 / 1087.25 Microbiology Past 72 Hours 05/31/20 20:05 Mucosa - Nose Respiratory Panel (PCR) - Final Laboratory Results 06/01/20 06:15: Sodium 138, Potassium 4.0, Chloride 103, Carbon Dioxide 28.0, Anion Gap 7, BUN 20 H, Creatinine 0.88, Estim Creat Clear Calc 56.50, Est GFR (MDRD) Af Amer 83, Est GFR (MDRD) Non-Af 69, BUN/Creatinine Ratio 22.6 H, Glucose 136 H, Calcium 8.5, Ferritin 735 H, Total Bilirubin 0.40, AST 22, ALT 20, Alkaline Phosphatase 49, C-React Prot Ext Range 95.70 H, Total Protein 7.5, Albumin 3.1 L, Globulin 4.4 H, Albumin/Globulin Ratio 0.7 L 06/01/20 06:15: D-Dimer Quant (PE/DVT) 0.40 06/01/20 06:15: Procalcitonin 0.12 H 06/02/20 05:44: WBC 8.4, RBC 3.76 L, Hgb 11.9 L, Hct 36.2 L, MCV 96.3, MCH 31.6, MCHC 32.9, RDW Std Deviation 44.7 H, RDW Coeff of Osvaldo 12.6, Plt Count 137 L, MPV 9.5 06/02/20 05:44: Sodium 138, Potassium 4.1, Chloride 104, Carbon Dioxide 27.0, Anion Gap 7, BUN 24 H, Creatinine 0.87, Estim Creat Clear Calc 57.15, Est GFR (MDRD) Af Amer 84, Est GFR (MDRD) Non-Af 70, BUN/Creatinine Ratio 27.5 H, Glucose 113 H, Calcium 8.5, Total Bilirubin 0.40, AST 21, ALT 19, Alkaline Phosphatase 47, Total Protein 6.3 L, Albumin 2.9 L, Globulin 3.4, Albumin/Globulin Ratio 0.9 Current Medications Acetaminophen (Acetaminophen 325 Mg Tablet) 650 mg PO Q6H PRN PRN PRN Reason: Pain Score 1-10/Temp > 100.7 F Al Hydroxide/Mg Hydroxide (Mag Hydrox/Al Hydrox/Simeth 30 Ml Udc) 30 ml PO Q6H PRN PRN PRN Reason: Gastric Burning Albuterol Sulfate (Albuterol Sulfate 18 Gm Inhaler (200 Puffs)) 1 puff IH Q2H PRN PRN PRN Reason: Dyspnea, wheezing Amlodipine Besylate (Amlodipine 5 Mg Tablet) 5 mg PO DAILY [facility] Last Admin: 06/01/20 09:00 Dose: 5 mg Documented by: Atorvastatin Calcium (Atorvastatin Calcium 10 Mg Tablet) 10 mg PO DAILY@2200 [facility] Last Admin: 06/01/20 22:05 Dose: 10 mg Documented by: Dexamethasone Sodium Phosphate (Dexamethasone 10 Mg/Ml Vial) 6 mg IV DAILY [facility] Stop: 06/10/20 10:01 Last Admin: 06/01/20 09:00 Dose: 6 mg Documented by: Enoxaparin Sodium (Enoxaparin 30 Mg/0.3 Ml Syringe) 30 mg SC BID [facility] Last Admin: 06/01/20 22:05 Dose: 30 mg Documented by: Guaifenesin (Guaifenesin 10 Ml Udc (200mg/10ml)) 20 ml PO Q4H PRN PRN PRN Reason: COUGH Hydralazine HCl (Hydralazine 20 Mg/Ml Vial) 10 mg IV Q4H PRN PRN PRN Reason: SBP > 160 Sodium Chloride () 250 mls @ 15 mls/hr IV .[id number] PRN PRN Reason: Saline Flush Sodium Chloride () 250 mls @ 15 mls/hr IV .[id number] PRN PRN Reason: Additional IVPB Infusion Last Infusion: 06/01/20 14:44 Dose: 0 mls/hr Documented by: Remdesivir 100 mg/ Sodium (Chloride) 250 mls @ 125 mls/hr IV DAILY [facility]; Protocol Stop: 06/05/20 11:59 Levothyroxine Sodium (Levothyroxine 112 Mcg Tablet) 112 mcg PO DAILY [facility] Last Admin: 06/01/20 09:01 Dose: 112 mcg Documented by: Lisinopril (Lisinopril 10 Mg Tablet) 10 mg PO DAILY [facility] Last Admin: 06/01/20 09:01 Dose: 10 mg Documented by: Melatonin (Melatonin 3 Mg Tablet) 3 mg PO QHS PRN PRN PRN Reason: INSOMNIA Last Admin: 06/01/20 22:06 Dose: 3 mg Documented by: Miscellaneous Information (Inhaler, Assist Devices 1 Each Spacer) 1 each INHALATION PRN PRN PRN Reason: WITH ALBUTEROL INHALER Morphine Sulfate (Morphine 2 Mg/Ml Syringe) 2 mg IV Q3H PRN PRN PRN Reason: Pain Score 6-10 Ondansetron HCl (Ondansetron 4 Mg/2 Ml Vial) 4 mg IV Q8H PRN PRN PRN Reason: NAUSEA/VOMITING Oxycodone HCl (Oxycodone 5 Mg Tablet) 5 mg PO Q4H PRN PRN PRN Reason: Pain Score 4-5 Prochlorperazine Edisylate (Prochlorperazine 10 Mg/2 Ml Vial) 5 mg IV Q4H PRN PRN PRN Reason: Breakthrough nausea/vomiting Sodium Chloride (0.9% Saline Lock 10 Ml Syringe) 10 - 40 ml IV UD PRN PRN Reason: SALINE FLUSH Last Admin: 06/01/20 22:04 Dose: 10 ml Documented by: Throat Lozenges (Benzocaine/Menthol 1 Lozenge) 1 lozenge MUCOUS MEM Q2H PRN PRN PRN Reason: SORE THROAT Zinc Sulfate (Zinc Sulfate (50mg Elemental) 220 Mg Capsule) 220 mg PO DAILY [facility] Last Admin: 06/01/20 09:01 Dose: 220 mg Documented by: STROKE Vital Signs/Narrative: Vital Signs Temp Pulse Resp BP Pulse Ox 06/02/20 04:18 98.6 F 65 20 H 117/73 95 Medical Necessity - Tobacco Use Smoking Status: Never smoker Tobacco Use: Non-smoker Assessment/Plan All Active Problems Pneumonia due to 2019 novel coronavirus (Acute) Hypoxia (Acute) Patient is a 65-year-old lady diagnosed with COVID-19 on 05/24/2020 presented with progressive shortness of breath with associated cough had apparently been diagnosed with COVID-19 almost a week prior. Her serology test in the ED came back positive admitted to a monitored bed for further management 1. Acute COVID-19 pneumonitis ?Patient admitted to a monitored bed started on Decadron and supplemental oxygen with consultation placed to infectious disease -06/02/2020 Patient was started on remdesivir by infectious disease the day prior, patient oxygen requirement had to be increased to 10 L due to hypoxia. Consult subsequently placed to pulmonary medicine 2. Hypothyroidism - Patient is on levothyroxine home dose continued 3. Hypertension - Blood pressure controlled, home medications continued with dose adjustment as needed 4. Dyslipidemia -Patient is on statin therapy, continued at home dose 5. Morbid obesity - With a BMI of patient was counseled on weight reduction 6. DVT prophylaxis - Lovenox. Inpatient E&M: [id number] [facility] L3
[2020-06-02] MEDS: dexAMETHasone 10 MG/ML Vial 6 MG IV (07:49)
[2020-06-02] MEDS: amLODIPine 5 MG Tablet PO (07:50)
[2020-06-02] MEDS: Levothyroxine 112 MCG Tablet PO (07:50)
[2020-06-02] MEDS: Lisinopril 10 MG Tablet PO (07:50)
[2020-06-02] MEDS: Enoxaparin 30 MG/0.3 ML Syringe SC ×2 (07:50→20:13)
[2020-06-02] MEDS: 0.9% Saline Lock 10 ML Syringe IV ×3 (07:57→20:14)
--- NOTE | 2020-06-02 10:10 | CON.PCM_ITS ---
Reason for Consult Date of Consultation: 06/02/20 Reason for Consultation: Acute hypoxemic respiratory failure secondary to COVID- 19 pneumonia History of Present Illness: The patient is a 65-year-old female, with a history as outlined below, who initially presented to the emergency department on May 31 with fevers, chills, cough and shortness of breath. The patient's is also positive for coronavirus and currently admitted to the hospital. The patient reported that her symptoms initially began 1 week ago and worsened in the 48 hours leading up to her hospitalization. On presentation to the emergency department, the patient was noted to be febrile, tachycardic and tachypneic. Laboratory evaluation revealed a normal white blood cell count. D-dimer was normal at 0.42. Chemistry profile was unrevealing. Coronavirus PCR was positive. Procalcitonin was not markedly elev ated. The patient was subsequently started on Decadron. She was admitted to the coronavirus cohort unit for further management. The patient was subsequently seen in consultation by infectious diseases and started on remdesivir. Her supplemental oxygen requirement has increased over the course of her hospitalization to 10 L/min as of this morning. Past Medical History Past Medical History (Chronic Problems): Chronic Problems HTN (hypertension) (Chronic) HLD (hyperlipidemia) (Chronic) Hypothyroidism (Chronic) Allergies clindamycin Adverse Reaction (Verified 05/31/20 19:40) Hives combid Adverse Reaction (Uncoded 05/31/20 19:40) NEEDS FOLLOW-UP almost killed me Home Medications: Ambulatory Orders Medication Instructions Recorded Azithromycin 500 mg PO DAILY 05/31/20 Levothyroxine [Synthroid] 112 mcg PO DAILY 05/31/20 Methylprednisolone [Medrol] 4 mg PO DAILY 05/31/20 Simvastatin 20 mg PO DAILY 05/31/20 Zinc Sulfate 220 mg PO DAILY 05/31/20 Surgical History: - - Total abdominal hysterectomy with bilateral salpingo- oophorectomy and right knee arthroscopic surgery. 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 Lives: Spouse/ Significant Other Smoking Status: Never smoker Tobacco Use: Non-smoker Alcohol: None Drugs: None - *Family History Maternal History Items: Pulmonary Disease - Patient notes her mother passed secondary to a history of lung cancer with significant tobacco use history. Paternal History Items: Heart Disease Review of Systems Constitutional: Reports: Chills, Fever, Malaise, Fatigue Eyes: Denies: Blurred vision, Double vision HEENT: Denies: Head Aches, Sinus Congestion, Sinus Drainage Cardiovascular: Denies: Chest Pain, Palpitations Respiratory: Reports: Cough, Shortness of Breath Gastrointestinal: Reports: Nausea Genitourinary: Denies: Dysuria Musculoskeletal: Denies: Joint Pain, Joint Tenderness Skin: Denies: Rash, Wounds Neurological: Denies: Numbness, Tingling, Focal weakness Psychiatric: Denies: Anxiety, Depression, Homicidal Ideations, Suicidal Ideations Hematologic/ Lymphatic: Denies: Easy Bruising, Easy Bleeding Patient Problems: Active and Suspected Problems Pneumonia due to 2019 novel coronavirus (Acute) Hypoxia (Acute) Objective: The patient's most recent lab work, culture data and imaging studies have all be en personally reviewed. Coronavirus PCR was positive on May 31. Respiratory viral panel was negative. Blood cultures have shown no growth to date. - Physical Exam Vitals/I&O's: Vital Signs Temp Pulse Resp BP Pulse Ox 98.4 F 70 18 119/69 96 06/02/20 09:44 06/02/20 09:44 06/02/20 09:44 06/02/20 09:44 06/02/20 09:44 Oxygen Flow Rate (L/min) 10 Oxygen Delivery Method Nasal Cannula Weight: 177 lb 4.026 oz Body Mass Index (BMI) 30.4 Intake and Output for Last 24 Hours 05/31/20 06/01/20 06/02/20 23:59 23:59 23:59 Intake Total 1087.25 / 1087.25 Balance 1087.25 / 1087.25 General: Alert, Cooperative, No apparent distress HEENT: Atraumatic, PERRLA, Normocephalic Oral: No Gingival or Mucosal Lesions/ Ulcerations Neck: Supple Lungs: No rhonchi, No wheeze, No rales, Diminished Cardiovascular: Regular rate, Regular Rhythm Abdomen: Bowel Sounds Present, Soft, Non Tender Extremities: No clubbing, No cyanosis, No edema Skin: No breakdown Musculoskeletal: No Tenderness to Palpation of Joints or Extremities Lymphatic: No Cervical, Supraclavicular, or Inguinal Adenopathy Neurological: Cranial nerves II-XII grossly intact, Neuro grossly intact Psych/Mental Status: Alert and oriented to time, place, person, mood and affect Labs (Last 48 Hours) 05/31/20 05/31/20 05/31/20 20:05 20:10 20:10 WBC RBC Hgb Hct MCV MCH MCHC RDW Std Deviation RDW Coeff of Osvaldo Plt Count MPV Immature Gran % (Auto) Neut % (Auto) Lymph % (Auto) Walton % (Auto) Eos % (Auto) Baso % (Auto) Absolute Neuts (auto) Absolute Lymphs (auto) Nucleated RBC % Fibrinogen 636 H D-Dimer Quant (PE/DVT) 0.42 Sodium 138 Potassium 3.6 Chloride 103 Carbon Dioxide 26.0 Anion Gap 9 BUN 14 Creatinine 0.84 Estim Creat Clear Calc 59.20 Est GFR (MDRD) Af Amer 88 Est GFR (MDRD) Non-Af 73 BUN/Creatinine Ratio 16.7 Glucose 100 Lactic Acid Calcium 8.6 Ferritin Total Bilirubin 0.40 AST 23 ALT 22 Alkaline Phosphatase 51 Lactate Dehydrogenase 332 H Total Creatine Kinase 53 C-React Prot Ext Range 71.80 H Total Protein 7.6 Albumin 3.3 Globulin 4.3 H Albumin/Globulin Ratio 0.8 L Procalcitonin COVID-19 ([facility]) Positive 05/31/20 05/31/20 05/31/20 20:10 20:10 20:10 WBC 4.9 RBC 4.14 L Hgb 13.0 Hct 39.1 MCV 94.4 MCH 31.4 MCHC 33.2 RDW Std Deviation 43.0 RDW Coeff of Osvaldo 12.3 Plt Count 127 L MPV 9.4 Immature Gran % (Auto) 0.400 Neut % (Auto) 71.8 H Lymph % (Auto) 22.1 Walton % (Auto) 5.7 Eos % (Auto) 0.0 Baso % (Auto) 0.0 Absolute Neuts (auto) 3.5 Absolute Lymphs (auto) 1.08 Nucleated RBC % 0 Fibrinogen D-Dimer Quant (PE/DVT) Sodium Potassium Chloride Carbon Dioxide Anion Gap BUN Creatinine Estim Creat Clear Calc Est GFR (MDRD) Af Amer Est GFR (MDRD) Non-Af BUN/Creatinine Ratio Glucose Lactic Acid 1.2 Calcium Ferritin Total Bilirubin AST ALT Alkaline Phosphatase Lactate Dehydrogenase Total Creatine Kinase C-React Prot Ext Range Total Protein Albumin Globulin Albumin/Globulin Ratio Procalcitonin 0.06 COVID-19 ([facility]) 06/01/20 06/01/20 06/01/20 06:15 06:15 06:15 WBC 4.2 L RBC 4.15 L Hgb 13.0 Hct 40.2 MCV 96.9 MCH 31.3 MCHC 32.3 RDW Std Deviation 44.7 H RDW Coeff of Osvaldo 12.5 Plt Count 119 L MPV 9.7 Immature Gran % (Auto) 0.200 Neut % (Auto) 80.3 H Lymph % (Auto) 15.4 L Walton % (Auto) 4.1 Eos % (Auto) 0.0 Baso % (Auto) 0.0 Absolute Neuts (auto) 3.3 Absolute Lymphs (auto) 0.64 L Nucleated RBC % 0 Fibrinogen D-Dimer Quant (PE/DVT) 0.40 Sodium 138 Potassium 4.0 Chloride 103 Carbon Dioxide 28.0 Anion Gap 7 BUN 20 H Creatinine 0.88 Estim Creat Clear Calc 56.50 Est GFR (MDRD) Af Amer 83 Est GFR (MDRD) Non-Af 69 BUN/Creatinine Ratio 22.6 H Glucose 136 H Lactic Acid Calcium 8.5 Ferritin 735 H Total Bilirubin 0.40 AST 22 ALT 20 Alkaline Phosphatase 49 Lactate Dehydrogenase Total Creatine Kinase C-React Prot Ext Range 95.70 H Total Protein 7.5 Albumin 3.1 L Globulin 4.4 H Albumin/Globulin Ratio 0.7 L Procalcitonin COVID-19 ([facility]) 06/01/20 06/02/20 06/02/20 06:15 05:44 05:44 WBC 8.4 RBC 3.76 L Hgb 11.9 L Hct 36.2 L MCV 96.3 MCH 31.6 MCHC 32.9 RDW Std Deviation 44.7 H RDW Coeff of Osvaldo 12.6 Plt Count 137 L MPV 9.5 Immature Gran % (Auto) Neut % (Auto) Lymph % (Auto) Walton % (Auto) Eos % (Auto) Baso % (Auto) Absolute Neuts (auto) Absolute Lymphs (auto) Nucleated RBC % Fibrinogen D-Dimer Quant (PE/DVT) Sodium 138 Potassium 4.1 Chloride 104 Carbon Dioxide 27.0 Anion Gap 7 BUN 24 H Creatinine 0.87 Estim Creat Clear Calc 57.15 Est GFR (MDRD) Af Amer 84 Est GFR (MDRD) Non-Af 70 BUN/Creatinine Ratio 27.5 H Glucose 113 H Lactic Acid Calcium 8.5 Ferritin Total Bilirubin 0.40 AST 21 ALT 19 Alkaline Phosphatase 47 Lactate Dehydrogenase Total Creatine Kinase C-React Prot Ext Range Total Protein 6.3 L Albumin 2.9 L Globulin 3.4 Albumin/Globulin Ratio 0.9 Procalcitonin 0.12 H COVID-19 ([facility]) Microbiology 05/31/20 20:05 Mucosa - Nose Respiratory Panel (PCR) - Final Clinical Impression(s) from Imaging Studies Chest X-Ray 05/31/20 20:30 IMPRESSION: Findings consistent with Covid 19 pneumonia in the lower lobes more severe on the left. Electronically Signed: Dayton Lugo MD at 20:55 EST , Service support , Current Medications Acetaminophen (Acetaminophen 325 Mg Tablet) 650 mg PO Q6H PRN PRN PRN Reason: Pain Score 1-10/Temp > 100.7 F Al Hydroxide/Mg Hydroxide (Mag Hydrox/Al Hydrox/Simeth 30 Ml Udc) 30 ml PO Q6H PRN PRN PRN Reason: Gastric Burning Albuterol Sulfate (Albuterol Sulfate 18 Gm Inhaler (200 Puffs)) 1 puff IH Q2H PRN PRN PRN Reason: Dyspnea, wheezing Amlodipine Besylate (Amlodipine 5 Mg Tablet) 5 mg PO DAILY [facility] Last Admin: 06/02/20 07:50 Dose: 5 mg Documented by: Atorvastatin Calcium (Atorvastatin Calcium 10 Mg Tablet) 10 mg PO DAILY@2200 [facility] Last Admin: 06/01/20 22:05 Dose: 10 mg Documented by: Dexamethasone Sodium Phosphate (Dexamethasone 10 Mg/Ml Vial) 6 mg IV DAILY [facility] Stop: 06/10/20 10:01 Last Admin: 06/02/20 07:49 Dose: 6 mg Documented by: Enoxaparin Sodium (Enoxaparin 30 Mg/0.3 Ml Syringe) 30 mg SC BID [facility] Last Admin: 06/02/20 07:50 Dose: 30 mg Documented by: Guaifenesin (Guaifenesin 10 Ml Udc (200mg/10ml)) 20 ml PO Q4H PRN PRN PRN Reason: COUGH Hydralazine HCl (Hydralazine 20 Mg/Ml Vial) 10 mg IV Q4H PRN PRN PRN Reason: SBP > 160 Sodium Chloride () 250 mls @ 15 mls/hr IV .[id number] PRN PRN Reason: Saline Flush Sodium Chloride () 250 mls @ 15 mls/hr IV .[id number] PRN PRN Reason: Additional IVPB Infusion Last Infusion: 06/01/20 14:44 Dose: 0 mls/hr Documented by: Remdesivir 100 mg/ Sodium (Chloride) 250 mls @ 125 mls/hr IV DAILY [facility]; Protocol Stop: 06/05/20 11:59 Last Admin: 06/02/20 09:41 Dose: 125 mls/hr Documented by: Levothyroxine Sodium (Levothyroxine 112 Mcg Tablet) 112 mcg PO DAILY [facility] Last Admin: 06/02/20 07:50 Dose: 112 mcg Documented by: Lisinopril (Lisinopril 10 Mg Tablet) 10 mg PO DAILY [facility] Last Admin: 06/02/20 07:50 Dose: 10 mg Documented by: Melatonin (Melatonin 3 Mg Tablet) 3 mg PO QHS PRN PRN PRN Reason: INSOMNIA Last Admin: 06/01/20 22:06 Dose: 3 mg Documented by: Miscellaneous Information (Inhaler, Assist Devices 1 Each Spacer) 1 each INHALATION PRN PRN PRN Reason: WITH ALBUTEROL INHALER Morphine Sulfate (Morphine 2 Mg/Ml Syringe) 2 mg IV Q3H PRN PRN PRN Reason: Pain Score 6-10 Ondansetron HCl (Ondansetron 4 Mg/2 Ml Vial) 4 mg IV Q8H PRN PRN PRN Reason: NAUSEA/VOMITING Oxycodone HCl (Oxycodone 5 Mg Tablet) 5 mg PO Q4H PRN PRN PRN Reason: Pain Score 4-5 Prochlorperazine Edisylate (Prochlorperazine 10 Mg/2 Ml Vial) 5 mg IV Q4H PRN PRN PRN Reason: Breakthrough nausea/vomiting Sodium Chloride (0.9% Saline Lock 10 Ml Syringe) 10 - 40 ml IV UD PRN PRN Reason: SALINE FLUSH Last Admin: 06/02/20 09:41 Dose: 10 ml Documented by: Throat Lozenges (Benzocaine/Menthol 1 Lozenge) 1 lozenge MUCOUS MEM Q2H PRN PRN PRN Reason: SORE THROAT Zinc Sulfate (Zinc Sulfate (50mg Elemental) 220 Mg Capsule) 220 mg PO DAILY [facility] Last Admin: 06/02/20 07:50 Dose: 220 mg Documented by: Assessment/Plan All Active Problems Pneumonia due to 2019 novel coronavirus (Acute) Hypoxia (Acute) RECOMMENDATIONS: 1. Wean supplemental oxygen to maintain saturations at or above 90%. 2. Continue Decadron x10 days. 3. Continue remdesivir. Monitor liver and renal function closely. 4. Encourage incentive spirometer use and mobilize patient as tolerated. IMPRESSIONS: 1. Acute hypoxemic respiratory failure secondary to COVID-19 pneumonia Plan to continue current supportive measures with supplemental oxygen to maintain saturations at or above 90%. Continue Decadron 6 mg daily with plans to complete a 10-day treatment course. Continue remdesivir as ordered and monitor liver and renal function closely. Encourage incentive spirometer use and mobilize patient as tolerated. 2. Hyperlipidemia/hypothyroidism Complicates care, management, recovery and prognosis. Continue home medications as indicated. This note was generated with [employer] dictation software. It may contain incorrect words, spelling, and punctuation that were not noted in checking the note before signing. Inpatient E&M: 08617 Init Hosp L3
--- NOTE | 2020-06-02 15:14 | PCM.HP.ID ---
Problem List (1) Pneumonia due to 2019 novel coronavirus Status: Acute Reason for Consult: covid Consulted by: Dr. Carter History of Present Illness: The patient is a 65 year old F who presented 06/01 with sx starting 05/29 with fever, mild headache, fatigue, cough, SOB. also sick, admitted to [facility]. No change in taste/smell. No n/v/d. Came to ED, fever to 102.1, hypoxic. Started on dex, remdesivir. Feeling a little better today. Full ROS performed and neg except as noted above. - Medical History Past Medical History (Chronic Problems): Chronic Problems HTN (hypertension) (Chronic) HLD (hyperlipidemia) (Chronic) Hypothyroidism (Chronic) Allergies/Adverse Reactions: Allergies clindamycin Adverse Reaction (Verified 05/31/20 19:40) Hives combid Adverse Reaction (Uncoded 05/31/20 19:40) NEEDS FOLLOW-UP almost killed me Home Medications: Ambulatory Orders Medication Instructions Recorded Azithromycin 500 mg PO DAILY 05/31/20 Levothyroxine [Synthroid] 112 mcg PO DAILY 05/31/20 Methylprednisolone [Medrol] 4 mg PO DAILY 05/31/20 Simvastatin 20 mg PO DAILY 05/31/20 Zinc Sulfate 220 mg PO DAILY 05/31/20 - Social History Lives: with Tobacco Use: non-smoker Vital Signs Temp Pulse Resp BP Pulse Ox 98.3 F 71 18 104/68 93 06/02/20 13:00 06/02/20 13:00 06/02/20 13:00 06/02/20 13:00 06/02/20 13:00 Oxygen Flow Rate (L/min) 10 Oxygen Delivery Method Nasal Cannula Weight: 80.4 kg Body Mass Index (BMI) 30.4 Microbiology Past 72 Hours 05/31/20 20:05 Respiratory Panel (PCR) - Final Mucosa - Nose Laboratory Tests Past 24 Hrs 06/02/20 06/02/20 05:44 05:44 WBC 8.4 RBC 3.76 L Hgb 11.9 L Hct 36.2 L MCV 96.3 MCH 31.6 MCHC 32.9 RDW Std Deviation 44.7 H RDW Coeff of Osvaldo 12.6 Plt Count 137 L MPV 9.5 Sodium 138 Potassium 4.1 Chloride 104 Carbon Dioxide 27.0 Anion Gap 7 BUN 24 H Creatinine 0.87 Estim Creat Clear Calc 57.15 Est GFR (MDRD) Af Amer 84 Est GFR (MDRD) Non-Af 70 BUN/Creatinine Ratio 27.5 H Glucose 113 H Calcium 8.5 Total Bilirubin 0.40 AST 21 ALT 19 Alkaline Phosphatase 47 Total Protein 6.3 L Albumin 2.9 L Globulin 3.4 Albumin/Globulin Ratio 0.9 - Other Studies Radiology: [] reviewed Other Studies: [] Route of nutrition/ use of supplements: [] Nutritional Intake: [] IV Site: [] Hoffman Catheter: [] - Physical Exam General: Alert, Oriented x3, Cooperative HEENT: Atraumatic, PERRLA, EOMI Neck: Supple, No Nodes Lungs: Diminished, Rales Cardiovascular: Regular rate, Regular Rhythm Abdomen: Soft, Non Tender, Non-Distended Extremities: No edema Skin: No rashes IV Site: Peripheral, without redness Musculoskeletal: No Tenderness to Palpation of Joints or Extremities Neurological: Cranial nerves II-XII grossly intact - Assessment/Plan Antibiotics: [] Assessment/Plan: [] Active and Suspected Problems Pneumonia due to 2019 novel coronavirus (Acute) Hypoxia (Acute) Fever resolved. On 10L NC. On dex, lovenox 30mg bid, and remdesivir. Reviewed EUA and risks/benefits of convalescent plasma, she agrees to start. Will check BNP, some rales on exam. Will follow, thank you.
[2020-06-02] MEDS: Atorvastatin Calcium 10 MG Tablet PO (20:13)
[2020-06-02] MEDS: MELATONIN 3 MG TABLET PO (20:13)
[2020-06-03] VITALS (11 sets, daily range): BP systolic 111–130; BP diastolic 69–81; PULSE 55–91; RESP 18; TEMP 36.6–36.9; O2SAT 92–95
--- NOTE | 2020-06-03 07:38 | PCM.PN.HOSP ---
Patient Problems: Active and Suspected Problems Pneumonia due to 2019 novel coronavirus (Acute) Hypoxia (Acute) Reason for Visit: COVID-19 infection Subjective: 06/02/2020 patient was started on remdesivir by infectious disease the day prior, patient oxygen requirement had to be increased to 10 L due to hypoxia. Consult subsequently placed to pulmonary medicine 06/03/2020; Clinical improvement in patient's condition oxygen being titrated down to 3 L Objective: GENERAL: on high flow oxygen HEENT: Atraumatic; EYES; Anicteric, Normal Conjunctiva NECK; supple, normal thyroid, RESPIRATORY: Diminished to auscultation CARDIOVASCULAR: Regular S1 S2, GI: soft, normoactive bowel sounds, : No Renal angle tenderness; EXTREMITIES: No edema, no clubbing, MUSCULOSKELETAL: no muscle waisting NEURO: Awake; no lateralizing signs. SKIN: No Rash PSYCH; Flat affect Vitals/I&O's: Vital Signs Temp Pulse Resp BP Pulse Ox 98 F 63 18 130/81 H 95 06/03/20 02:56 06/03/20 02:56 06/03/20 03:00 06/03/20 02:56 06/03/20 03:00 Oxygen Flow Rate (L/min) 10 Oxygen Delivery Method Nasal Cannula Weight: 80.4 kg Body Mass Index (BMI) 30.4 Intake and Output for Last 24 Hours 06/01/20 06/02/20 06/03/20 23:59 23:59 23:59 Intake Total 1087.25 / 1087.25 965.5 / 1165.5 1200 / 1200 Balance 1087.25 / 1087.25 965.5 / 1165.5 1200 / 1200 Microbiology Past 72 Hours 05/31/20 20:05 Mucosa - Nose Respiratory Panel (PCR) - Final Laboratory Results 06/01/20 06:15: Blood Type O POSITIVE Current Medications Acetaminophen (Acetaminophen 325 Mg Tablet) 650 mg PO Q6H PRN PRN PRN Reason: Pain Score 1-10/Temp > 100.7 F Al Hydroxide/Mg Hydroxide (Mag Hydrox/Al Hydrox/Simeth 30 Ml Udc) 30 ml PO Q6H PRN PRN PRN Reason: Gastric Burning Albuterol Sulfate (Albuterol Sulfate 18 Gm Inhaler (200 Puffs)) 1 puff IH Q2H PRN PRN PRN Reason: Dyspnea, wheezing Amlodipine Besylate (Amlodipine 5 Mg Tablet) 5 mg PO DAILY [facility] Last Admin: 06/02/20 07:50 Dose: 5 mg Documented by: Atorvastatin Calcium (Atorvastatin Calcium 10 Mg Tablet) 10 mg PO DAILY@2200 [facility] Last Admin: 06/02/20 20:13 Dose: 10 mg Documented by: Dexamethasone (Dexamethasone 4 Mg Tablet) 6 mg PO DAILY [facility] Stop: 06/10/20 10:01 Enoxaparin Sodium (Enoxaparin 30 Mg/0.3 Ml Syringe) 30 mg SC BID [facility] Last Admin: 06/02/20 20:13 Dose: 30 mg Documented by: Guaifenesin (Guaifenesin 10 Ml Udc (200mg/10ml)) 20 ml PO Q4H PRN PRN PRN Reason: COUGH Hydralazine HCl (Hydralazine 20 Mg/Ml Vial) 10 mg IV Q4H PRN PRN PRN Reason: SBP > 160 Sodium Chloride () 250 mls @ 15 mls/hr IV .[id number] PRN PRN Reason: Saline Flush Sodium Chloride () 250 mls @ 15 mls/hr IV .[id number] PRN PRN Reason: Additional IVPB Infusion Last Infusion: 06/02/20 13:08 Dose: 0 mls/hr Documented by: Remdesivir 100 mg/ Sodium (Chloride) 250 mls @ 125 mls/hr IV DAILY [facility]; Protocol Stop: 06/05/20 11:59 Last Infusion: 06/02/20 12:05 Dose: Infused Documented by: Levothyroxine Sodium (Levothyroxine 112 Mcg Tablet) 112 mcg PO DAILY [facility] Last Admin: 06/02/20 07:50 Dose: 112 mcg Documented by: Lisinopril (Lisinopril 10 Mg Tablet) 10 mg PO DAILY [facility] Last Admin: 06/02/20 07:50 Dose: 10 mg Documented by: Melatonin (Melatonin 3 Mg Tablet) 3 mg PO QHS PRN PRN PRN Reason: INSOMNIA Last Admin: 06/02/20 20:13 Dose: 3 mg Documented by: Miscellaneous Information (Inhaler, Assist Devices 1 Each Spacer) 1 each INHALATION PRN PRN PRN Reason: WITH ALBUTEROL INHALER Ondansetron HCl (Ondansetron 4 Mg/2 Ml Vial) 4 mg IV Q8H PRN PRN PRN Reason: NAUSEA/VOMITING Oxycodone HCl (Oxycodone 5 Mg Tablet) 5 mg PO Q4H PRN PRN PRN Reason: Pain Score 4-5 Prochlorperazine Edisylate (Prochlorperazine 10 Mg/2 Ml Vial) 5 mg IV Q4H PRN PRN PRN Reason: Breakthrough nausea/vomiting Sodium Chloride (0.9% Saline Lock 10 Ml Syringe) 10 - 40 ml IV UD PRN PRN Reason: SALINE FLUSH Last Admin: 06/02/20 20:14 Dose: 10 ml Documented by: Throat Lozenges (Benzocaine/Menthol 1 Lozenge) 1 lozenge MUCOUS MEM Q2H PRN PRN PRN Reason: SORE THROAT Zinc Sulfate (Zinc Sulfate (50mg Elemental) 220 Mg Capsule) 220 mg PO DAILY [facility] Last Admin: 06/02/20 07:50 Dose: 220 mg Documented by: Medical Necessity - Tobacco Use Smoking Status: Never smoker Tobacco Use: Non-smoker Assessment/Plan All Active Problems Pneumonia due to 2019 novel coronavirus (Acute) Hypoxia (Acute) Patient is a 65-year-old lady diagnosed with COVID-19 on 05/24/2020 presented with progressive shortness of breath with associated cough had apparently been diagnosed with COVID-19 almost a week prior. Her serology test in the ED came back positive admitted to a monitored bed for further management 1. Acute COVID-19 pneumonitis ?Patient admitted to a monitored bed started on Decadron and supplemental oxygen with consultation placed to infectious disease -06/02/2020 Patient was started on remdesivir by infectious disease the day prior, patient oxygen requirement had to be increased to 10 L due to hypoxia. Consult subsequently placed to pulmonary medicine -06/03/2020; Clinical improvement in patient's condition oxygen being titrated down to 3 L 2. Hypothyroidism - Patient is on levothyroxine home dose continued 3. Hypertension - Blood pressure controlled, home medications continued with dose adjustment as needed 4. Dyslipidemia -Patient is on statin therapy, continued at home dose 5. Morbid obesity - With a BMI of patient was counseled on weight reduction 6. DVT prophylaxis - Lovenox. Inpatient E&M: 46966 [facility] Hosp L2
[2020-06-03 08:01] LABS: Hemoglobin 11.5 g/dL (12.0-15.0); Mean Corp Hgb Conc 32.9 g/dL (32-36); Mean Corpuscular Hgb 31.9 pg (27.0-32.0); Mean Platelet Vol. 9.7 fl (6.2-12.0); Platelet Count 144 K/mm3 (150-450); RBC Distribution Width CV 12.4 % (11.6-14.6); RBC Distribution Width SD 44.5 fl (35.1-43.9); Red Blood Count 3.61 M/mm3 (4.2-5.4); White Blood Count 7.1 K/mm3 (4.4-11.0)
[2020-06-03 08:29] LABS: BNP,B-Type NATRIURETIC PEPTIDE 111.1 pg/mL (0-100)
[2020-06-03 08:40] LABS: ALB/GLOB Ratio 0.7 RATIO (0.9-2.4); AST(SGOT) 18 U/L (15-37); Alanine Aminotransfer ALT/SGPT 20 U/L (13-56); Albumin, Serum 2.8 g/dL (3.2-5.0); Alkaline Phosphatase 49 U/L (45-117); Anion Gap 7 (5-15); BUN 23 mg/dL (7-18); BUN/Creat Ratio 35.8 RATIO (10-20); Calcium,Total 8.5 mg/dL (8.5-10.1); Chloride 109 mmol/L (98-107); Creatinine, Serum 0.64 mg/dL (0.55-1.02); EST Glomerular Filtration Rate 99 mL/min (>60); Est Glom Filt Rate - Afr Amer 120 mL/min (>60); Estimated Creatinine Clearance 77.69 ml/min; Globulin 3.9 g/dL (2.2-4.2); Glucose 105 mg/dL (74-106); Potassium 3.8 mmol/L (3.5-5.1); Protein, Total 6.7 g/dL (6.4-8.2); Sodium Level 140 mmol/L (136-145)
[2020-06-03] MEDS: dexAMETHasone 4 MG Tablet 6 MG PO (09:38)
[2020-06-03] MEDS: Lisinopril 10 MG Tablet PO (09:39)
[2020-06-03] MEDS: amLODIPine 5 MG Tablet PO (09:39)
[2020-06-03] MEDS: Levothyroxine 112 MCG Tablet PO (09:39)
[2020-06-03] MEDS: Enoxaparin 30 MG/0.3 ML Syringe SC ×2 (09:40→20:15)
[2020-06-03] MEDS: 0.9% Saline Lock 10 ML Syringe IV ×2 (09:48→10:49)
--- NOTE | 2020-06-03 10:29 | PCM.PN.PUL ---
Patient Problems: Active and Suspected Problems Pneumonia due to 2019 novel coronavirus (Acute) Hypoxia (Acute) Subjective: The patient was seen and examined at the bedside this morning. Events from the last 24 hours have been reviewed. The patient is currently afebrile, hemodynamically stable and maintaining appropriate oxygen saturations on 10 L/min via nasal cannula. The patient is sitting in her bedside recliner. She has been making attempts to utilize her incentive spirometer. She does report some interval improvement in her dyspnea. The patient has already received convalescent plasma and remains on remdesivir and Decadron. Objective: The patient's most recent lab work, culture data and imaging studies have all been personally reviewed. Coronavirus PCR was positive on May 31. Respiratory viral panel was negative. Blood cultures have shown no growth to date. - Physical Exam Vitals/I&O's: Vital Signs Temp Pulse Resp BP Pulse Ox 98.1 F 70 18 111/70 94 06/03/20 08:55 06/03/20 08:55 06/03/20 08:55 06/03/20 08:55 06/03/20 09:59 Oxygen Flow Rate (L/min) 3 Oxygen Delivery Method Nasal Cannula Weight: 177 lb 4.026 oz Body Mass Index (BMI) 30.4 Intake and Output for Last 24 Hours 06/01/20 06/02/20 06/03/20 23:59 23:59 23:59 Intake Total 1087.25 / 1087.25 965.5 / 1165.5 1200 / 1200 Balance 1087.25 / 1087.25 965.5 / 1165.5 1200 / 1200 General: Alert, Cooperative, No apparent distress, - - Sitting in bedside recliner. HEENT: Atraumatic, Normocephalic Oral: Moist Mucosa, No Gingival or Mucosal Lesions/ Ulcerations Neck: Supple, No Nodes, Trachea Midline Lungs: No rhonchi, No wheeze, No rales, Diminished Cardiovascular: Regular rate, Regular Rhythm Abdomen: Bowel Sounds Present, Soft, Non Tender Extremities: No clubbing, No cyanosis, No edema Skin: No breakdown Musculoskeletal: No Tenderness to Palpation of Joints or Extremities Lymphatic: No Cervical, Supraclavicular, or Inguinal Adenopathy Neurological: Cranial nerves II-XII grossly intact, Neuro grossly intact Psych/Mental Status: Alert and oriented to time, place, person, mood and affect Labs (Last 48 Hours) 06/01/20 06/02/20 06/02/20 06:15 05:44 05:44 WBC 8.4 RBC 3.76 L Hgb 11.9 L Hct 36.2 L MCV 96.3 MCH 31.6 MCHC 32.9 RDW Std Deviation 44.7 H RDW Coeff of Osvaldo 12.6 Plt Count 137 L MPV 9.5 Sodium 138 Potassium 4.1 Chloride 104 Carbon Dioxide 27.0 Anion Gap 7 BUN 24 H Creatinine 0.87 Estim Creat Clear Calc 57.15 Est GFR (MDRD) Af Amer 84 Est GFR (MDRD) Non-Af 70 BUN/Creatinine Ratio 27.5 H Glucose 113 H Calcium 8.5 Total Bilirubin 0.40 AST 21 ALT 19 Alkaline Phosphatase 47 B-Natriuretic Peptide Total Protein 6.3 L Albumin 2.9 L Globulin 3.4 Albumin/Globulin Ratio 0.9 Blood Type O POSITIVE 06/03/20 06/03/20 06/03/20 06:25 06:25 06:25 WBC 7.1 RBC 3.61 L Hgb 11.5 L Hct 35.0 L MCV 97.0 MCH 31.9 MCHC 32.9 RDW Std Deviation 44.5 H RDW Coeff of Osvaldo 12.4 Plt Count 144 L MPV 9.7 Sodium 140 Potassium 3.8 Chloride 109 H Carbon Dioxide 24.0 Anion Gap 7 BUN 23 H Creatinine 0.64 Estim Creat Clear Calc 77.69 Est GFR (MDRD) Af Amer 120 Est GFR (MDRD) Non-Af 99 BUN/Creatinine Ratio 35.8 H Glucose 105 Calcium 8.5 Total Bilirubin 0.40 AST 18 ALT 20 Alkaline Phosphatase 49 B-Natriuretic Peptide 111.1 H Total Protein 6.7 Albumin 2.8 L Globulin 3.9 Albumin/Globulin Ratio 0.7 L Blood Type Microbiology 05/31/20 20:05 Blood Culture (Wb) - Right Hand Blood Culture - Preliminary No growth in 48 hours. 05/31/20 20:10 Blood Culture (Wb) - Anticubital Right Blood Culture - Preliminary No growth in 48 hours. Clinical Impression(s) from Imaging Studies Chest X-Ray 05/31/20 20:30 IMPRESSION: Findings consistent with Covid 19 pneumonia in the lower lobes more severe on the left. Electronically Signed: Dayton Lugo MD at 20:55 EST , Service support , Current Medications Acetaminophen (Acetaminophen 325 Mg Tablet) 650 mg PO Q6H PRN PRN PRN Reason: Pain Score 1-10/Temp > 100.7 F Al Hydroxide/Mg Hydroxide (Mag Hydrox/Al Hydrox/Simeth 30 Ml Udc) 30 ml PO Q6H PRN PRN PRN Reason: Gastric Burning Albuterol Sulfate (Albuterol Sulfate 18 Gm Inhaler (200 Puffs)) 1 puff IH Q2H PRN PRN PRN Reason: Dyspnea, wheezing Amlodipine Besylate (Amlodipine 5 Mg Tablet) 5 mg PO DAILY [facility] Last Admin: 06/03/20 09:39 Dose: 5 mg Documented by: Atorvastatin Calcium (Atorvastatin Calcium 10 Mg Tablet) 10 mg PO DAILY@2200 [facility] Last Admin: 06/02/20 20:13 Dose: 10 mg Documented by: Dexamethasone (Dexamethasone 4 Mg Tablet) 6 mg PO DAILY [facility] Stop: 06/10/20 10:01 Last Admin: 06/03/20 09:38 Dose: 6 mg Documented by: Enoxaparin Sodium (Enoxaparin 30 Mg/0.3 Ml Syringe) 30 mg SC BID [facility] Last Admin: 06/03/20 09:40 Dose: 30 mg Documented by: Guaifenesin (Guaifenesin 10 Ml Udc (200mg/10ml)) 20 ml PO Q4H PRN PRN PRN Reason: COUGH Hydralazine HCl (Hydralazine 20 Mg/Ml Vial) 10 mg IV Q4H PRN PRN PRN Reason: SBP > 160 Sodium Chloride () 250 mls @ 15 mls/hr IV .[id number] PRN PRN Reason: Saline Flush Sodium Chloride () 250 mls @ 15 mls/hr IV .[id number] PRN PRN Reason: Additional IVPB Infusion Last Infusion: 06/02/20 13:08 Dose: 0 mls/hr Documented by: Remdesivir 100 mg/ Sodium (Chloride) 250 mls @ 125 mls/hr IV DAILY [facility]; Protocol Stop: 06/05/20 11:59 Last Admin: 06/03/20 09:43 Dose: 125 mls/hr Documented by: Levothyroxine Sodium (Levothyroxine 112 Mcg Tablet) 112 mcg PO DAILY [facility] Last Admin: 06/03/20 09:39 Dose: 112 mcg Documented by: Lisinopril (Lisinopril 10 Mg Tablet) 10 mg PO DAILY [facility] Last Admin: 06/03/20 09:39 Dose: 10 mg Documented by: Melatonin (Melatonin 3 Mg Tablet) 3 mg PO QHS PRN PRN PRN Reason: INSOMNIA Last Admin: 06/02/20 20:13 Dose: 3 mg Documented by: Miscellaneous Information (Inhaler, Assist Devices 1 Each Spacer) 1 each INHALATION PRN PRN PRN Reason: WITH ALBUTEROL INHALER Ondansetron HCl (Ondansetron 4 Mg/2 Ml Vial) 4 mg IV Q8H PRN PRN PRN Reason: NAUSEA/VOMITING Oxycodone HCl (Oxycodone 5 Mg Tablet) 5 mg PO Q4H PRN PRN PRN Reason: Pain Score 4-5 Prochlorperazine Edisylate (Prochlorperazine 10 Mg/2 Ml Vial) 5 mg IV Q4H PRN PRN PRN Reason: Breakthrough nausea/vomiting Sodium Chloride (0.9% Saline Lock 10 Ml Syringe) 10 - 40 ml IV UD PRN PRN Reason: SALINE FLUSH Last Admin: 06/03/20 09:48 Dose: 10 ml Documented by: Throat Lozenges (Benzocaine/Menthol 1 Lozenge) 1 lozenge MUCOUS MEM Q2H PRN PRN PRN Reason: SORE THROAT Zinc Sulfate (Zinc Sulfate (50mg Elemental) 220 Mg Capsule) 220 mg PO DAILY [facility] Last Admin: 06/03/20 09:39 Dose: 220 mg Documented by: Medical Necessity - Tobacco Use Smoking Status: Never smoker Tobacco Use: Non-smoker Assessment/Plan All Active Problems Pneumonia due to 2019 novel coronavirus (Acute) Hypoxia (Acute) RECOMMENDATIONS: 1. Wean supplemental oxygen to maintain saturations at or above 90%. 2. Continue Decadron x10 days. 3. Continue remdesivir. Monitor liver and renal function closely. 4. Encourage incentive spirometer use and mobilize patient as tolerated. 5. Give IV Lasix x1 today. IMPRESSIONS: 1. Acute hypoxemic respiratory failure secondary to COVID-19 pneumonia Plan to continue current supportive measures with supplemental oxygen to maintain saturations at or above 90%. Continue Decadron 6 mg daily with plans to complete a 10-day treatment course. Continue remdesivir as ordered and monitor liver and renal function closely. Encourage incentive spirometer use and mobilize patient as tolerated. Will give one-time dose of IV Lasix today as well. 2. Hyperlipidemia/hypothyroidism Complicates care, management, recovery and prognosis. Continue home medications as indicated. This note was generated with [employer] dictation software. It may contain incorrect words, spelling, and punctuation that were not noted in checking the note before signing. Inpatient E&M: 08622 Subs Hosp L2
[2020-06-03] MEDS: Furosemide 40 MG/4 ML Vial IV (10:49)
--- NOTE | 2020-06-03 11:14 | PN.ID_ITS ---
Patient Problems: Active and Suspected Problems Pneumonia due to 2019 novel coronavirus (Acute) Hypoxia (Acute) Subjective: Feeling much better today, no fever, no n/v/d. - Physical Exam Vitals/I&O's: Vital Signs Temp Pulse Resp BP Pulse Ox 98.1 F 70 18 111/70 94 06/03/20 08:55 06/03/20 08:55 06/03/20 08:55 06/03/20 08:55 06/03/20 09:59 Oxygen Flow Rate (L/min) 3 Oxygen Delivery Method Nasal Cannula Weight: 80.4 kg Body Mass Index (BMI) 30.4 Intake and Output for Last 24 Hours 06/01/20 06/02/20 06/03/20 23:59 23:59 23:59 Intake Total 1087.25 / 1087.25 965.5 / 1165.5 1200 / 1200 Balance 1087.25 / 1087.25 965.5 / 1165.5 1200 / 1200 General: Alert, Cooperative, No apparent distress Lungs: Clear to auscultation, Diminished Cardiovascular: Regular rate, Regular Rhythm Abdomen: Soft, Non Tender, Non-Distended Skin: No rashes Microbiology Past 72 Hours 05/31/20 20:05 Blood Culture (Wb) - Right Hand Blood Culture - Preliminary No growth in 48 hours. 05/31/20 20:10 Blood Culture (Wb) - Anticubital Right Blood Culture - Preliminary No growth in 48 hours. 05/31/20 20:05 Mucosa - Nose Respiratory Panel (PCR) - Final Laboratory Results 06/01/20 06:15: Blood Type O POSITIVE 06/03/20 06:25: WBC 7.1, RBC 3.61 L, Hgb 11.5 L, Hct 35.0 L, MCV 97.0, MCH 31.9, MCHC 32.9, RDW Std Deviation 44.5 H, RDW Coeff of Osvaldo 12.4, Plt Count 144 L, MPV 9.7 06/03/20 06:25: Sodium 140, Potassium 3.8, Chloride 109 H, Carbon Dioxide 24.0, Anion Gap 7, BUN 23 H, Creatinine 0.64, Estim Creat Clear Calc 77.69, Est GFR (MDRD) Af Amer 120, Est GFR (MDRD) Non-Af 99, BUN/Creatinine Ratio 35.8 H, Glucose 105, Calcium 8.5, Total Bilirubin 0.40, AST 18, ALT 20, Alkaline Phosphatase 49, Total Protein 6.7, Albumin 2.8 L, Globulin 3.9, Albumin/Globulin Ratio 0.7 L 06/03/20 06:25: B-Natriuretic Peptide 111.1 H Current Medications Acetaminophen (Acetaminophen 325 Mg Tablet) 650 mg PO Q6H PRN PRN PRN Reason: Pain Score 1-10/Temp > 100.7 F Al Hydroxide/Mg Hydroxide (Mag Hydrox/Al Hydrox/Simeth 30 Ml Udc) 30 ml PO Q6H PRN PRN PRN Reason: Gastric Burning Albuterol Sulfate (Albuterol Sulfate 18 Gm Inhaler (200 Puffs)) 1 puff IH Q2H PRN PRN PRN Reason: Dyspnea, wheezing Amlodipine Besylate (Amlodipine 5 Mg Tablet) 5 mg PO DAILY [facility] Last Admin: 06/03/20 09:39 Dose: 5 mg Documented by: Atorvastatin Calcium (Atorvastatin Calcium 10 Mg Tablet) 10 mg PO DAILY@2200 [facility] Last Admin: 06/02/20 20:13 Dose: 10 mg Documented by: Dexamethasone (Dexamethasone 4 Mg Tablet) 6 mg PO DAILY [facility] Stop: 06/10/20 10:01 Last Admin: 06/03/20 09:38 Dose: 6 mg Documented by: Enoxaparin Sodium (Enoxaparin 30 Mg/0.3 Ml Syringe) 30 mg SC BID [facility] Last Admin: 06/03/20 09:40 Dose: 30 mg Documented by: Guaifenesin (Guaifenesin 10 Ml Udc (200mg/10ml)) 20 ml PO Q4H PRN PRN PRN Reason: COUGH Hydralazine HCl (Hydralazine 20 Mg/Ml Vial) 10 mg IV Q4H PRN PRN PRN Reason: SBP > 160 Sodium Chloride () 250 mls @ 15 mls/hr IV .[id number] PRN PRN Reason: Saline Flush Sodium Chloride () 250 mls @ 15 mls/hr IV .[id number] PRN PRN Reason: Additional IVPB Infusion Last Infusion: 06/02/20 13:08 Dose: 0 mls/hr Documented by: Remdesivir 100 mg/ Sodium (Chloride) 250 mls @ 125 mls/hr IV DAILY [facility]; Protocol Stop: 06/05/20 11:59 Last Admin: 06/03/20 09:43 Dose: 125 mls/hr Documented by: Levothyroxine Sodium (Levothyroxine 112 Mcg Tablet) 112 mcg PO DAILY [facility] Last Admin: 06/03/20 09:39 Dose: 112 mcg Documented by: Lisinopril (Lisinopril 10 Mg Tablet) 10 mg PO DAILY [facility] Last Admin: 06/03/20 09:39 Dose: 10 mg Documented by: Melatonin (Melatonin 3 Mg Tablet) 3 mg PO QHS PRN PRN PRN Reason: INSOMNIA Last Admin: 06/02/20 20:13 Dose: 3 mg Documented by: Miscellaneous Information (Inhaler, Assist Devices 1 Each Spacer) 1 each INHALATION PRN PRN PRN Reason: WITH ALBUTEROL INHALER Ondansetron HCl (Ondansetron 4 Mg/2 Ml Vial) 4 mg IV Q8H PRN PRN PRN Reason: NAUSEA/VOMITING Oxycodone HCl (Oxycodone 5 Mg Tablet) 5 mg PO Q4H PRN PRN PRN Reason: Pain Score 4-5 Prochlorperazine Edisylate (Prochlorperazine 10 Mg/2 Ml Vial) 5 mg IV Q4H PRN PRN PRN Reason: Breakthrough nausea/vomiting Sodium Chloride (0.9% Saline Lock 10 Ml Syringe) 10 - 40 ml IV UD PRN PRN Reason: SALINE FLUSH Last Admin: 06/03/20 10:49 Dose: 10 ml Documented by: Throat Lozenges (Benzocaine/Menthol 1 Lozenge) 1 lozenge MUCOUS MEM Q2H PRN PRN PRN Reason: SORE THROAT Zinc Sulfate (Zinc Sulfate (50mg Elemental) 220 Mg Capsule) 220 mg PO DAILY [facility] Last Admin: 06/03/20 09:39 Dose: 220 mg Documented by: Medical Necessity - Tobacco Use Smoking Status: Never smoker Tobacco Use: Non-smoker Route of nutrition/ use of supplements: [] Nutritional Intake: [] IV Site: [] Hoffman Catheter: [] - Assessment/Plan Antibiotics: [] Assessment/Plan: [] Active and Suspected Problems Pneumonia due to 2019 novel coronavirus (Acute) Hypoxia (Acute) Fever resolved. On 3L NC. On dex, lovenox 30mg bid, and remdesivir. Got plasma 06/02. Much improved today. Ok for home on O2 as needed to complete 10 days total of dex, two weeks total quarantine. Will follow
[2020-06-03] MEDS: Atorvastatin Calcium 10 MG Tablet PO (20:15)
[2020-06-03] MEDS: MELATONIN 3 MG TABLET PO (20:16)
[2020-06-04] VITALS (13 sets, daily range): BP systolic 106–127; BP diastolic 65–87; PULSE 52–93; RESP 16–18; TEMP 36.8–37.1; O2SAT 87–94
[2020-06-04 07:28] LABS: Hematocrit 36.1 % (37-47); Hemoglobin 11.7 g/dL (12.0-15.0); Mean Corp Hgb Conc 32.4 g/dL (32-36); Mean Corpuscular Hgb 31.5 pg (27.0-32.0); Mean Platelet Vol. 9.6 fl (6.2-12.0); Platelet Count 158 K/mm3 (150-450); RBC Distribution Width CV 12.2 % (11.6-14.6); RBC Distribution Width SD 43.7 fl (35.1-43.9); Red Blood Count 3.72 M/mm3 (4.2-5.4); White Blood Count 7.4 K/mm3 (4.4-11.0)
[2020-06-04 07:56] LABS: ALB/GLOB Ratio 0.7 RATIO (0.9-2.4); AST(SGOT) 20 U/L (15-37); Alanine Aminotransfer ALT/SGPT 25 U/L (13-56); Albumin, Serum 2.9 g/dL (3.2-5.0); Alkaline Phosphatase 48 U/L (45-117); Anion Gap 7 (5-15); BUN 24 mg/dL (7-18); BUN/Creat Ratio 29.7 RATIO (10-20); Calcium,Total 8.7 mg/dL (8.5-10.1); Chloride 103 mmol/L (98-107); Creatinine, Serum 0.81 mg/dL (0.55-1.02); EST Glomerular Filtration Rate 76 mL/min (>60); Est Glom Filt Rate - Afr Amer 92 mL/min (>60); Estimated Creatinine Clearance 61.39 ml/min; Globulin 3.9 g/dL (2.2-4.2); Glucose 121 mg/dL (74-106); Potassium 3.8 mmol/L (3.5-5.1); Protein, Total 6.8 g/dL (6.4-8.2); Sodium Level 138 mmol/L (136-145)
[2020-06-04] MEDS: Lisinopril 10 MG Tablet PO (09:21)
[2020-06-04] MEDS: amLODIPine 5 MG Tablet PO (09:21)
[2020-06-04] MEDS: Levothyroxine 112 MCG Tablet PO (09:21)
[2020-06-04] MEDS: dexAMETHasone 4 MG Tablet 6 MG PO (09:22)
[2020-06-04] MEDS: Enoxaparin 30 MG/0.3 ML Syringe SC (09:23)
--- NOTE | 2020-06-04 11:08 | PCM.PN.PUL ---
Patient Problems: Active and Suspected Problems Pneumonia due to 2019 novel coronavirus (Acute) Hypoxia (Acute) Subjective: The patient was seen and examined at the bedside this morning. Events from the last 24 hours have been reviewed. The patient is currently afebrile, hemodynamically stable and maintaining appropriate oxygen saturations on 4 L/min via nasal cannula. The patient does report continued improvement in her overall symptoms. The patient was updated regarding the clinical status of her , who is currently admitted to the ICU. The patient has already received convalescent plasma and remains on remdesivir and Decadron. Liver and renal function are stable. Objective: The patient's most recent lab work, culture data and imaging studies have all been personally reviewed. Coronavirus PCR was positive on May 31. Respiratory viral panel was negative. Blood cultures have shown no growth to date. - Physical Exam Vitals/I&O's: Vital Signs Temp Pulse Resp BP Pulse Ox 98.2 F 74 18 119/65 90 06/04/20 09:35 06/04/20 09:35 06/04/20 09:35 06/04/20 09:35 06/04/20 09:37 Oxygen Flow Rate (L/min) [ 6 AMBULATION with Oxygen] Oxygen Flow Rate (L/min) [At 4 REST on Room Air] Oxygen Flow Rate (L/min) 4 Oxygen Delivery Method Nasal Cannula Weight: 177 lb 4.026 oz Body Mass Index (BMI) 30.4 Intake and Output for Last 24 Hours 06/02/20 06/03/20 06/04/20 23:59 23:59 23:59 Intake Total 965.5 / 1165.5 1929 / 2129 450 / 450 Balance 965.5 / 1165.5 1929 450 / 450 General: Alert, Oriented x3, Cooperative, No apparent distress, - - Sitting in bedside recliner. HEENT: Atraumatic, PERRLA, Normocephalic Oral: No Gingival or Mucosal Lesions/ Ulcerations Neck: Supple, No Nodes, Trachea Midline Lungs: No rhonchi, No wheeze, No rales, Diminished Cardiovascular: Regular rate, Regular Rhythm, Normal S1, Normal S2, No murmurs Abdomen: Bowel Sounds Present, Soft, Non Tender, Obese Extremities: No clubbing, No cyanosis, No edema Skin: No breakdown Musculoskeletal: No Tenderness to Palpation of Joints or Extremities Lymphatic: No Cervical, Supraclavicular, or Inguinal Adenopathy Neurological: Cranial nerves II-XII grossly intact, Neuro grossly intact Psych/Mental Status: Flat Affect Labs (Last 48 Hours) 06/01/20 06/03/20 06/03/20 06:15 06:25 06:25 WBC 7.1 RBC 3.61 L Hgb 11.5 L Hct 35.0 L MCV 97.0 MCH 31.9 MCHC 32.9 RDW Std Deviation 44.5 H RDW Coeff of Osvaldo 12.4 Plt Count 144 L MPV 9.7 Sodium 140 Potassium 3.8 Chloride 109 H Carbon Dioxide 24.0 Anion Gap 7 BUN 23 H Creatinine 0.64 Estim Creat Clear Calc 77.69 Est GFR (MDRD) Af Amer 120 Est GFR (MDRD) Non-Af 99 BUN/Creatinine Ratio 35.8 H Glucose 105 Calcium 8.5 Total Bilirubin 0.40 AST 18 ALT 20 Alkaline Phosphatase 49 B-Natriuretic Peptide Total Protein 6.7 Albumin 2.8 L Globulin 3.9 Albumin/Globulin Ratio 0.7 L Blood Type O POSITIVE 06/03/20 06/04/20 06/04/20 06:25 06:20 06:20 WBC 7.4 RBC 3.72 L Hgb 11.7 L Hct 36.1 L MCV 97.0 MCH 31.5 MCHC 32.4 RDW Std Deviation 43.7 RDW Coeff of Osvaldo 12.2 Plt Count 158 MPV 9.6 Sodium 138 Potassium 3.8 Chloride 103 Carbon Dioxide 28.0 Anion Gap 7 BUN 24 H Creatinine 0.81 Estim Creat Clear Calc 61.39 Est GFR (MDRD) Af Amer 92 Est GFR (MDRD) Non-Af 76 BUN/Creatinine Ratio 29.7 H Glucose 121 H Calcium 8.7 Total Bilirubin 0.50 AST 20 ALT 25 Alkaline Phosphatase 48 B-Natriuretic Peptide 111.1 H Total Protein 6.8 Albumin 2.9 L Globulin 3.9 Albumin/Globulin Ratio 0.7 L Blood Type Microbiology 05/31/20 20:05 Blood Culture (Wb) - Right Hand Blood Culture - Preliminary No growth in 48 hours. 05/31/20 20:10 Blood Culture (Wb) - Anticubital Right Blood Culture - Preliminary No growth in 48 hours. Clinical Impression(s) from Imaging Studies Chest X-Ray 05/31/20 20:30 IMPRESSION: Findings consistent with Covid 19 pneumonia in the lower lobes more severe on the left. Electronically Signed: Dayton Lugo MD at 20:55 EST , Service support , Current Medications Acetaminophen (Acetaminophen 325 Mg Tablet) 650 mg PO Q6H PRN PRN PRN Reason: Pain Score 1-10/Temp > 100.7 F Al Hydroxide/Mg Hydroxide (Mag Hydrox/Al Hydrox/Simeth 30 Ml Udc) 30 ml PO Q6H PRN PRN PRN Reason: Gastric Burning Albuterol Sulfate (Albuterol Sulfate 18 Gm Inhaler (200 Puffs)) 1 puff IH Q2H PRN PRN PRN Reason: Dyspnea, wheezing Amlodipine Besylate (Amlodipine 5 Mg Tablet) 5 mg PO DAILY [facility] Last Admin: 06/04/20 09:21 Dose: 5 mg Documented by: Atorvastatin Calcium (Atorvastatin Calcium 10 Mg Tablet) 10 mg PO DAILY@2200 [facility] Last Admin: 06/03/20 20:15 Dose: 10 mg Documented by: Dexamethasone (Dexamethasone 4 Mg Tablet) 6 mg PO DAILY [facility] Stop: 06/10/20 10:01 Last Admin: 06/04/20 09:22 Dose: 6 mg Documented by: Enoxaparin Sodium (Enoxaparin 30 Mg/0.3 Ml Syringe) 30 mg SC BID [facility] Last Admin: 06/04/20 09:23 Dose: 30 mg Documented by: Guaifenesin (Guaifenesin 10 Ml Udc (200mg/10ml)) 20 ml PO Q4H PRN PRN PRN Reason: COUGH Hydralazine HCl (Hydralazine 20 Mg/Ml Vial) 10 mg IV Q4H PRN PRN PRN Reason: SBP > 160 Sodium Chloride () 250 mls @ 15 mls/hr IV .[id number] PRN PRN Reason: Saline Flush Sodium Chloride () 250 mls @ 15 mls/hr IV .[id number] PRN PRN Reason: Additional IVPB Infusion Last Infusion: 06/02/20 13:08 Dose: 0 mls/hr Documented by: Remdesivir 100 mg/ Sodium (Chloride) 250 mls @ 125 mls/hr IV DAILY [facility]; Protocol Stop: 06/05/20 11:59 Last Admin: 06/04/20 11:01 Dose: 125 mls/hr Documented by: Levothyroxine Sodium (Levothyroxine 112 Mcg Tablet) 112 mcg PO DAILY [facility] Last Admin: 06/04/20 09:21 Dose: 112 mcg Documented by: Lisinopril (Lisinopril 10 Mg Tablet) 10 mg PO DAILY [facility] Last Admin: 06/04/20 09:21 Dose: 10 mg Documented by: Melatonin (Melatonin 3 Mg Tablet) 3 mg PO QHS PRN PRN PRN Reason: INSOMNIA Last Admin: 06/03/20 20:16 Dose: 3 mg Documented by: Miscellaneous Information (Inhaler, Assist Devices 1 Each Spacer) 1 each INHALATION PRN PRN PRN Reason: WITH ALBUTEROL INHALER Ondansetron HCl (Ondansetron 4 Mg/2 Ml Vial) 4 mg IV Q8H PRN PRN PRN Reason: NAUSEA/VOMITING Oxycodone HCl (Oxycodone 5 Mg Tablet) 5 mg PO Q4H PRN PRN PRN Reason: Pain Score 4-5 Prochlorperazine Edisylate (Prochlorperazine 10 Mg/2 Ml Vial) 5 mg IV Q4H PRN PRN PRN Reason: Breakthrough nausea/vomiting Sodium Chloride (0.9% Saline Lock 10 Ml Syringe) 10 - 40 ml IV UD PRN PRN Reason: SALINE FLUSH Last Admin: 06/03/20 10:49 Dose: 10 ml Documented by: Throat Lozenges (Benzocaine/Menthol 1 Lozenge) 1 lozenge MUCOUS MEM Q2H PRN PRN PRN Reason: SORE THROAT Zinc Sulfate (Zinc Sulfate (50mg Elemental) 220 Mg Capsule) 220 mg PO DAILY [facility] Last Admin: 06/04/20 09:21 Dose: 220 mg Documented by: Medical Necessity - Tobacco Use Smoking Status: Never smoker Tobacco Use: Non-smoker Assessment/Plan All Active Problems Pneumonia due to 2019 novel coronavirus (Acute) Hypoxia (Acute) RECOMMENDATIONS: 1. Wean supplemental oxygen to maintain saturations at or above 90%. 2. Continue Decadron x10 days. 3. Continue remdesivir. Monitor liver and renal function closely. 4. Encourage incentive spirometer use and mobilize patient as tolerated. 5. Continue intermittent diuretic dosing as tolerated by hemodynamics and renal function. IMPRESSIONS: 1. Acute hypoxemic respiratory failure secondary to COVID-19 pneumonia Plan to continue current supportive measures with supplemental oxygen to maintain saturations at or above 90%. Continue Decadron 6 mg daily with plans to complete a 10-day treatment course. Continue remdesivir as ordered and monitor liver and renal function closely. Encourage incentive spirometer use and mobilize patient as tolerated. Continue gentle diuresis as tolerated by hemodynamics and renal function. 2. Hyperlipidemia/hypothyroidism Complicates care, management, recovery and prognosis. Continue home medications as indicated. This note was generated with [employer] dictation software. It may contain incorrect words, spelling, and punctuation that were not noted in checking the note before signing. Inpatient E&M: 01981 Subs Hosp L2
--- NOTE | 2020-06-04 12:44 | CASEMGMT ---
Social Work Pt is in ICU and is going to be transferred to tertiary facility. Staff assisted pt in seeing prior to husbands departure. SW met with pt in room to offer emotional support. Pt has spoke to physicians who have given pt update on spouse. Pt tearful throughout conversation but also able to verbalize feelings about her illness and her 's illness. Pt openly able to discuss important life events she shared with her . SW reviewed support systems and pt does have a daughter who lives next door and is very supportive as well as a sister and many friends that are supportive. Pt has been talking to them on the phone and also finds support from her confucianist and her hot room attendant. SW provided supportive listening and encouragement. While SW was in the room nurse called in stating physician feels pt can d/c today. Pt agreeable to d/c home. Pt stating it is scary to go home but feels she will be ok. Her dgt can get groceries for her and transport her home. If pt need home 02 she has no preference on company used. Shane VELASQUEZCM updated. Pt thanked WILLIAM for visit. SW remains available if pt has further needs. PATSY Nassar
[2020-06-04] MEDS: Furosemide 40 MG/4 ML Vial IV (12:53)
[2020-06-04] MEDS: 0.9% Saline Lock 10 ML Syringe IV (12:53)
--- NOTE | 2020-06-04 13:20 | CASEMGMT ---
Addendum entered by Shane Montoya 06/04/20 14:56: Call from [facility], [place]- they will set up concentrator in patient's home with daughter within the next half hour, then daughter will bring portable tank to hospital for discharge. Original Note: RON ISABEL Note- Patient does want to discharge home today. Oxygen script/clinicals faxed to [facility], [place]. Call to update re: need for portable tank to [facility]. Len IVERSONN RON ACM
--- NOTE | 2020-06-04 14:00 | CASEMGMT ---
RON CM Note: discussed with pt to have family member get pulse oximeter @ [facility] locally to monitor her oxygen. Pt states her daughter can do this. Len MCKEON RN ACM
--- NOTE | 2020-06-04 14:43 | DCINST_ITS ---
- Discharge Diagnoses Current Active Problems: Current Active and Chronic Problems Pneumonia due to 2019 novel coronavirus (Acute) Hypoxia (Acute) HTN (hypertension) (Chronic) HLD (hyperlipidemia) (Chronic) Hypothyroidism (Chronic) You will use the following diet at home:: Regular Your food should be the consistency of: Regular Your liquids should be the consistency of: Regular/Thin Discharge Activity: Return to Normal Activity Call your doctor if you observe: Fever of 101 or Higher, Shortness of breath, Dizziness, Fainting spells, Swelling in the ankles, Chest pain, Increased palpitations (irregular heartbeat) Allergies/Adverse Reactions: Allergies clindamycin Adverse Reaction (Verified 05/31/20 19:40) Hives combid Adverse Reaction (Uncoded 05/31/20 19:40) NEEDS FOLLOW-UP almost killed me Medications to take at Discharge Levothyroxine [Synthroid] 112 mcg PO DAILY 05/31/20 Simvastatin 20 mg PO DAILY 05/31/20 Zinc Sulfate 220 mg PO DAILY 05/31/20 Dexamethasone [Decadron] 6 mg PO DAILY #18 tab 06/04/20 The following prescriptions were given: Dexamethasone [Decadron] 6 mg PO DAILY #18 tab Transmission Status: Pending to [id number] [facility] Primary Care Physician: Sean Lincoln FORK REPAIRER, FORK REPAIRER-C [Primary Care Provider] - Please follow up with your Primary Care Physician in: 3-5 Days Test Results: Test results from this visit will be discussed in further detail at your follow- up appointment, if applicable. Please Follow Up With: Steve Cedeño DO When: 2-4 weeks
--- NOTE | 2020-06-04 19:11 | DS.PCM_ITS ---
Discharge Date and Diagnosis - Problem List Patient Problems: Active and Suspected Problems Pneumonia due to 2019 novel coronavirus (Acute) Hypoxia (Acute) Date of Admission: 05/31/20 Date of Discharge: 06/04/20 - Primary Discharge Diagnosis Acute Problems: Active Problems Pneumonia due to 2019 novel coronavirus (Acute) Hypoxia (Acute) - Secondary Discharge Diagnosis Chronic Problems: Chronic Problems HTN (hypertension) (Chronic) HLD (hyperlipidemia) (Chronic) Hypothyroidism (Chronic) Hospital Course and Treatment Imaging Results: Clinical Impression(s) from Imaging Studies Chest X-Ray 05/31/20 20:30 IMPRESSION: Findings consistent with Covid 19 pneumonia in the lower lobes more severe on the left. Electronically Signed: Dayton Lugo MD at 20:55 EST , Service support , Consults: ID Pulmonology Operations: None Procedures: None Summary of Care Provided: Per HPI: The patient is a 65 y/o F w/ PMHx: Obesity, Hypothyroidism, HTN, HLD who presents to the [facility] ED on 05/31/20 with history of onset frontal throbbing headache, body aches, worse bilateral shoulders and neck, nausea with no emesis or diarrhea, dry cough with dyspnea progressively worsening with fevers with onset approximately 05/24/2010 with onset of symptoms the prior diagnosed with Covid therefore she was a presumed positive although she did see her physician on 05/25/2020 who gave for steroids and a Z-Deric at that time but she had no improvement. Patient never had any alteration to sense of taste or smell. Given her 's worsening status and her own worsening status patient presented to the ED for evaluation. 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 She notes that both her and her have been wearing masks. Work-up in the ED included T1 102.1, heart rate 107, BP 139/87, respiratory rate 24, 91% on room air with gently noted 84% on room air with ambulation with improvement to 96 on 2 L nasal cannula, CBC with WC 4.9, hemoglobin 13, platelet 127 without marked shift, D-dimer 0.42, fibrinogen 636, CMP not marked appearing, lactic acid 1.2, LDH 332, total creatinine kinase 53, CRP 71.80, procalcitonin 0.06, Covid positive, blood culture x2 pending per ED, chest x-ray with findings consistent with COVID-19 pneumonia in the lower lobes more severe on the left. In the ED patient ministered Zofran, Tylenol, Decadron 6 mg IV x1. Hospital Course: 1. Hypoxic respiratory failure secondary to COVID-19 [id number] female presented to the hospital with her both with COVID-19. She need around 10 L of oxygen secondary to hypoxia and this improved on the day of discharge or showing it about 3 to 4 L at rest. She did require home O2 with ambulation of 6 L. I discussed with her the option of going home today given that she was maintaining oxygen sats with requirement less than 6 L and she felt comfortable going home. She expressed understanding of the risks and benefits of discharge today. She was able to meet with her prior to his transfer to in [place]. She will continue Decadron, and she did complete both convalescent plasma and remdesivir. 2. Her home med list on admission did not indicate blood pressure medications and she was started on these during her hospitalization for systolics in the 140s to 150s. I chose to discontinue these medications on discharge and recommend that she follow-up as an outpatient she only has a few days left of her steroids which is likely contributing to her elevated blood pressure. I recommend that she follow-up with her PCP in 3 to 5 days for outpatient blood pressure monitoring and if she does need blood pressure medications at that point then they would be an great position to be able to monitor her closely and take her off once her steroids are completed and she does not need them anymore. 3. Hypothyroidism, hyperlipidemia, and morbid obesity are all chronic medical conditions which complicate her care. Her home medications were continued where appropriate Patient Problems: Active and Suspected Problems Pneumonia due to 2019 novel coronavirus (Acute) Hypoxia (Acute) - Physical Exam Vitals/I&O's: Vital Signs Temp Pulse Resp BP Pulse Ox 98.7 F 85 16 106/87 H 94 06/04/20 15:03 06/04/20 15:03 06/04/20 15:03 06/04/20 15:03 06/04/20 15:03 Oxygen Flow Rate (L/min) [ 6 AMBULATION with Oxygen] Oxygen Flow Rate (L/min) [At 4 REST on Room Air] Oxygen Flow Rate (L/min) 4 Oxygen Delivery Method Nasal Cannula Weight: 177 lb 4.026 oz Body Mass Index (BMI) 30.4 Intake and Output for Last 24 Hours 06/02/20 06/03/20 06/04/20 23:59 23:59 23:59 Intake Total 965.5 / 1165.5 1929 1060.00 / 1060.00 Balance 965.5 / 1165.5 1929 1060.00 / 1060.00 General: Alert, Oriented x3, Cooperative, No apparent distress HEENT: Atraumatic, PERRLA, EOMI, Normocephalic Oral: Moist Mucosa Neck: Supple, No JVD Lungs: No rhonchi, No wheeze, No rales, Diminished Cardiovascular: Regular rate, Regular Rhythm, Normal S1, Normal S2, No murmurs Abdomen: Soft, Non Tender, Non-Distended, No Hepato-splenomegaly Extremities: No edema, Capillary Refill Less than 3 Seconds Skin: No rashes, No breakdown Neurological: Neuro grossly intact, Sensory exam intact to light touch and pain Psych/Mental Status: Flat Affect Microbiology Past 72 Hours 05/31/20 20:05 Blood Culture (Wb) - Right Hand Blood Culture - Preliminary No growth in 48 hours. 05/31/20 20:10 Blood Culture (Wb) - Anticubital Right Blood Culture - Preliminary No growth in 48 hours. Laboratory Results 06/04/20 06:20: WBC 7.4, RBC 3.72 L, Hgb 11.7 L, Hct 36.1 L, MCV 97.0, MCH 31.5, MCHC 32.4, RDW Std Deviation 43.7, RDW Coeff of Osvaldo 12.2, Plt Count 158, MPV 9.6 06/04/20 06:20: Sodium 138, Potassium 3.8, Chloride 103, Carbon Dioxide 28.0, Anion Gap 7, BUN 24 H, Creatinine 0.81, Estim Creat Clear Calc 61.39, Est GFR (MDRD) Af Amer 92, Est GFR (MDRD) Non-Af 76, BUN/Creatinine Ratio 29.7 H, Glucose 121 H, Calcium 8.7, Total Bilirubin 0.50, AST 20, ALT 25, Alkaline Phosphatase 48, Total Protein 6.8, Albumin 2.9 L, Globulin 3.9, Albumin/Globulin Ratio 0.7 L Discharge Activity: Return to Normal Activity Call your doctor if you observe: Fever of 101 or Higher, Shortness of breath, Dizziness, Fainting spells, Swelling in the ankles, Chest pain, Increased palpitations (irregular heartbeat) Home Medications: Medications to take at Discharge Levothyroxine [Synthroid] 112 mcg PO DAILY 05/31/20 Simvastatin 20 mg PO DAILY 05/31/20 Zinc Sulfate 220 mg PO DAILY 05/31/20 Dexamethasone [Decadron] 6 mg PO DAILY #18 tab 06/04/20 Following Prescriptions Were Given to Patient: Dexamethasone [Decadron] 6 mg PO DAILY #18 tab Transmission Status: Received by [id number] [facility] [place] Primary Care Physician: Sean Lincoln DAY CARE PROVIDER, DAY CARE PROVIDER-C [Primary Care Provider] - Please follow up with your Primary Care Physician in: 3-5 Days Please Follow Up With: Steve Cedeño DO When: 2-4 weeks Disposition: Home Minutes spent on discharge:: 35 Patient Condition:: Stable Medical Necessity - Tobacco Use Smoking Status: Never smoker Tobacco Use: Non-smoker Meaningful Use Info Meaningful Use Diagnoses (Choose all that apply): None applicable Inpatient E&M: 75833 Disch Hosp
== END 2020-06-04 16:35 | disposition home or self-care (01) | DRG 177 ==
LOC: ED 21:26 → MS2 22:22
PROVIDERS: Internal Medicine Infectious Disease; Admitting Provider Family Medicine; Emergency Provider Emergency Medicine; PCP Nurse Practitioner Family; Referring Provider Family Medicine; Visit Provider Family Medicine
DX: U07.1 COVID-19 (principal); J12.89 Other viral pneumonia; J96.01 Acute respiratory failure with hypoxia; E78.5 Hyperlipidemia, unspecified; I10 Essential (primary) hypertension; E03.9 Hypothyroidism, unspecified; E66.01 Morbid (severe) obesity due to excess calories; Z68.32 Body mass index [BMI] 32.0-32.9, adult; Z79.899 Other long term (current) drug therapy
CPT/HCPCS: 36415; 71045; 80053; 82550; 82728; 83605; 83615; 83880; 84145; 85025; 85027; 85379; 85384; 86140; 86900; 86901; 87040; 87633; 87635; 94760; 97802; 99251; 99285; J7040; J7050; A4216; G0463; J1940; J2405; U0002

== ENCOUNTER → 2020-10-18 08:03 | Outpatient (CLI) | payer OTHER, SELFPAY ==
[2020-10-13 09:54] VITALS: BMI 30.9
[2020-10-18 09:05] LABS: Hematocrit 42.3 % (37-47); Hemoglobin 13.8 g/dL (12.0-15.0); Mean Corp Hgb Conc 32.6 g/dL (32-36); Mean Corpuscular Hgb 30.4 pg (27.0-32.0); Mean Corpuscular Volume 93.2 fL (81-99); Mean Platelet Vol. 9.5 fl (6.2-12.0); Platelet Count 148 K/mm3 (150-450); RBC Distribution Width SD 41.1 fl (35.1-43.9); Red Blood Count 4.54 M/mm3 (4.2-5.4); White Blood Count 3.8 K/mm3 (4.4-11.0)
[2020-10-18 09:37] LABS: Vitamin D,25 Hydroxy 76.9 ng/mL
[2020-10-18 09:39] LABS: ALB/GLOB Ratio 1.2 RATIO (0.9-2.4); AST(SGOT) 19 U/L (15-37); Alanine Aminotransfer ALT/SGPT 28 U/L (13-56); Alkaline Phosphatase 74 U/L (45-117); Anion Gap 5 (5-15); BUN 14 mg/dL (7-18); BUN/Creat Ratio 17.9 RATIO (10-20); Calcium,Total 8.9 mg/dL (8.5-10.1); Chloride 106 mmol/L (98-107); Cholesterol 178 mg/dL (200); Creatinine, Serum 0.78 mg/dL (0.55-1.02); EST Glomerular Filtration Rate 79 mL/min (>60); Est Glom Filt Rate - Afr Amer 96 mL/min (>60); Globulin 3.3 g/dL (2.2-4.2); Glucose 98 mg/dL (74-106); High Density Lipoprotein 51 mg/dL; Potassium 3.8 mmol/L (3.5-5.1); Protein, Total 7.3 g/dL (6.4-8.2); Sodium Level 139 mmol/L (136-145); T4 Free Direct 0.94 ng/dL (0.76-1.46); Thyroid Stim Hormone (TSH) 1.22 uIU/mL (0.358-3.74); Triglycerides 163 mg/dL; Very Low Density Lipoprotein 33 mg/dL (5-40)
== END ==
PROVIDERS: PCP Nurse Practitioner Family; Referring Provider Nurse Practitioner Family; Visit Provider Nurse Practitioner Family
DX: I10 Essential (primary) hypertension (principal); E78.5 Hyperlipidemia, unspecified; E03.9 Hypothyroidism, unspecified; E55.9 Vitamin D deficiency, unspecified
CPT/HCPCS: 36415; 80053; 80061; 82306; 84439; 84443; 85027

== ENCOUNTER → 2021-04-19 08:22 | Outpatient (CLI) | payer OTHER, SELFPAY ==
[2021-04-19 09:01] LABS: Hemoglobin 13.4 g/dL (12.0-15.0); Mean Corp Hgb Conc 33.5 g/dL (32-36); Mean Corpuscular Hgb 31.6 pg (27.0-32.0); Mean Corpuscular Volume 94.3 fL (81-99); Mean Platelet Vol. 9.5 fl (6.2-12.0); Platelet Count 157 K/mm3 (150-450); RBC Distribution Width CV 12.6 % (11.6-14.6); RBC Distribution Width SD 43.9 fl (35.1-43.9); Red Blood Count 4.24 M/mm3 (4.2-5.4); White Blood Count 4.4 K/mm3 (4.4-11.0)
[2021-04-19 09:29] LABS: Vitamin D,25 Hydroxy 63.6 ng/mL
[2021-04-19 09:34] LABS: AST(SGOT) 15 U/L (15-37); Alanine Aminotransfer ALT/SGPT 29 U/L (13-56); Albumin, Serum 3.8 g/dL (3.2-5.0); Alkaline Phosphatase 80 U/L (45-117); Anion Gap 7 (5-15); BUN 13 mg/dL (7-18); BUN/Creat Ratio 16.4 RATIO (10-20); Calcium,Total 8.9 mg/dL (8.5-10.1); Chloride 103 mmol/L (98-107); Cholesterol 186 mg/dL (200); Creatinine, Serum 0.79 mg/dL (0.55-1.02); EST Glomerular Filtration Rate 78 mL/min (>60); Est Glom Filt Rate - Afr Amer 94 mL/min (>60); Globulin 3.7 g/dL (2.2-4.2); Glucose 102 mg/dL (74-106); High Density Lipoprotein 44 mg/dL; Potassium 3.9 mmol/L (3.5-5.1); Protein, Total 7.5 g/dL (6.4-8.2); Sodium Level 142 mmol/L (136-145); T4 Free Direct 0.93 ng/dL (0.76-1.46); Triglycerides 207 mg/dL; Very Low Density Lipoprotein 41 mg/dL (5-40)
== END ==
PROVIDERS: PCP Nurse Practitioner Family; Referring Provider Nurse Practitioner Family; Visit Provider Nurse Practitioner Family
DX: I10 Essential (primary) hypertension (principal); E78.5 Hyperlipidemia, unspecified; E03.9 Hypothyroidism, unspecified; E55.9 Vitamin D deficiency, unspecified
CPT/HCPCS: 36415; 80053; 80061; 82306; 84439; 84443; 85027

== ENCOUNTER 2021-10-17 16:06 | Outpatient (CLI) | payer OTHER, SELFPAY ==
--- NOTE | 2021-10-17 16:09 | BI_ITS ---
MAMMOGRAPHY - BILATERAL SCREENING REASON FOR EXAM: Female, 66 years old. Routine annual screening examination. PERTINENT HISTORY: Non-contributory. TECHNIQUE: Digital bilateral breast paz (3D mammographic acquisition) in the CC and MLO projections. 2-D mediolateral oblique (MLO) and craniocaudad (CC) views of both breasts were obtained. CAD: Full Field Digital Mammography with Computer Added Detection was performed. COMPARISON: Comparison is made with prior examination of 09/17/2019 and 03/11/2018. FINDINGS: Breast Composition: The breasts are heterogeneously dense, which may obscure small masses. There are no dominant masses or suspicious calcifications. 2 tissue markers are once again seen in the upper lateral aspect of the breast and in the upper central portion of the left breast. Benign appearing bilateral axillary lymph nodes. No other significant abnormalities are identified. There has been no significant change since the prior study. BI/SCRN MAMM (CAD)W/PAZ BILAT IMPRESSION: Stable bilateral screening mammogram. Yearly follow-up mammogram recommended. (A) ASSESSMENT CATEGORY: BIRADS Category 2: Benign. A letter regarding these results will be sent to the patient by the facility within 30 days. Approximately 10% of breast cancers are not detected by mammography. A normal mammogram should not delay biopsy of a clinically suspicious abnormality. [id number] Electronically Signed: Cesario Tavares MD at 9:13 EDT ,
== END 2021-10-17 23:59 | disposition home or self-care (01) ==
LOC: OPBI 16:07
PROVIDERS: PCP Nurse Practitioner Family; Visit Provider Nurse Practitioner Family
DX: Z12.31 Encounter for screening mammogram for malignant neoplasm of breast (principal)
CPT/HCPCS: 77063; 77067

== ENCOUNTER 2021-10-18 08:12 | Outpatient (CLI) | payer OTHER, SELFPAY ==
[2021-10-18 08:30] LABS: Hematocrit 38.9 % (37-47); Hemoglobin 13.5 g/dL (12.0-15.0); Mean Corp Hgb Conc 34.7 g/dL (32-36); Mean Corpuscular Hgb 31.6 pg (27.0-32.0); Mean Corpuscular Volume 91.1 fL (81-99); Mean Platelet Vol. 9.3 fl (6.2-12.0); Platelet Count 149 K/mm3 (150-450); RBC Distribution Width CV 12.5 % (11.6-14.6); RBC Distribution Width SD 41.4 fl (35.1-43.9); Red Blood Count 4.27 M/mm3 (4.2-5.4); White Blood Count 4.5 K/mm3 (4.4-11.0)
[2021-10-18 09:14] LABS: Vitamin D,25 Hydroxy 86.6 ng/mL
[2021-10-18 09:26] LABS: ALB/GLOB Ratio 1.2 RATIO (0.9-2.4); AST(SGOT) 21 U/L (15-37); Alanine Aminotransfer ALT/SGPT 32 U/L (13-56); Alkaline Phosphatase 71 U/L (45-117); Anion Gap 5 (5-15); BUN 12 mg/dL (7-18); BUN/Creat Ratio 13.8 RATIO (10-20); Calcium,Total 8.6 mg/dL (8.5-10.1); Chloride 106 mmol/L (98-107); Cholesterol 174 mg/dL (200); Creatinine, Serum 0.87 mg/dL (0.55-1.02); EST Glomerular Filtration Rate 70 mL/min (>60); Est Glom Filt Rate - Afr Amer 84 mL/min (>60); Globulin 3.3 g/dL (2.2-4.2); Glucose 105 mg/dL (74-106); High Density Lipoprotein 45 mg/dL; Protein, Total 7.3 g/dL (6.4-8.2); Sodium Level 138 mmol/L (136-145); T4 Free Direct 0.96 ng/dL (0.76-1.46); Thyroid Stim Hormone (TSH) 3.09 uIU/mL (0.358-3.74); Triglycerides 170 mg/dL; Very Low Density Lipoprotein 34 mg/dL (5-40)
== END 2021-10-18 23:59 | disposition home or self-care (01) ==
LOC: LAB 08:15
PROVIDERS: PCP Nurse Practitioner Family; Referring Provider Nurse Practitioner Family; Visit Provider Nurse Practitioner Family
DX: I10 Essential (primary) hypertension (principal); E78.5 Hyperlipidemia, unspecified; E03.9 Hypothyroidism, unspecified; E55.9 Vitamin D deficiency, unspecified
CPT/HCPCS: 36415; 80053; 80061; 82306; 84439; 84443; 85027

== ENCOUNTER → 2022-04-18 | Outpatient (CLI) | payer OTHER, SELFPAY ==
[2022-04-18 10:01] LABS: Hematocrit 39.8 % (37-47); Hemoglobin 13.9 g/dL (12.0-15.0); Mean Corp Hgb Conc 34.9 g/dL (32-36); Mean Corpuscular Hgb 32.6 pg (27.0-32.0); Mean Corpuscular Volume 93.2 fL (81-99); Mean Platelet Vol. 9.7 fl (6.2-12.0); Platelet Count 153 K/mm3 (150-450); RBC Distribution Width CV 12.4 % (11.6-14.6); RBC Distribution Width SD 42.5 fl (35.1-43.9); Red Blood Count 4.27 M/mm3 (4.2-5.4); White Blood Count 4.8 K/mm3 (4.4-11.0)
[2022-04-18 10:40] LABS: ALB/GLOB Ratio 1.1 RATIO (0.9-2.4); AST(SGOT) 25 U/L (15-37); Alanine Aminotransfer ALT/SGPT 39 U/L (13-56); Albumin, Serum 3.8 g/dL (3.2-5.0); Alkaline Phosphatase 77 U/L (45-117); Anion Gap 8 (5-15); BUN 13 mg/dL (7-18); BUN/Creat Ratio 16.1 RATIO (10-20); Calcium,Total 8.7 mg/dL (8.5-10.1); Chloride 107 mmol/L (98-107); Cholesterol 173 mg/dL (200); Creatinine, Serum 0.81 mg/dL (0.55-1.02); EST Glomerular Filtration Rate 76 mL/min (>60); Est Glom Filt Rate - Afr Amer 91 mL/min (>60); Globulin 3.5 g/dL (2.2-4.2); Glucose 103 mg/dL (74-106); High Density Lipoprotein 42 mg/dL; Potassium 3.8 mmol/L (3.5-5.1); Protein, Total 7.3 g/dL (6.4-8.2); Sodium Level 141 mmol/L (136-145); T4 Free Direct 1.04 ng/dL (0.76-1.46); Triglycerides 197 mg/dL; Very Low Density Lipoprotein 39 mg/dL (5-40)
[2022-04-18 11:14] LABS: Microalbumin,Random Urine 21.1 mg/L (NO RANGE EST.); Microalbumin:Creatinine Ratio 36.1 mg/g CRE (<30 mg/g CRE)
== END | disposition home or self-care (01) ==
LOC: LAB 08:31
PROVIDERS: PCP Nurse Practitioner Family; Visit Provider Nurse Practitioner Family
DX: E03.9 Hypothyroidism, unspecified (principal); E55.9 Vitamin D deficiency, unspecified; I10 Essential (primary) hypertension; E78.1 Pure hyperglyceridemia; R73.01 Impaired fasting glucose; R63.8 Other symptoms and signs concerning food and fluid intake; E78.5 Hyperlipidemia, unspecified
CPT/HCPCS: 36415; 80053; 80061; 82043; 82306; 82570; 84439; 84443; 85027

== ENCOUNTER → 2022-10-18 | Outpatient (CLI) | payer MEDICARE, OTHER, SELFPAY ==
[2022-10-18 08:54] LABS: Vitamin D,25 Hydroxy 96.6 ng/mL
[2022-10-18 08:59] LABS: ALB/GLOB Ratio 1.2 RATIO (0.9-2.4); AST(SGOT) 19 U/L (15-37); Alanine Aminotransfer ALT/SGPT 36 U/L (13-56); Albumin, Serum 3.9 g/dL (3.2-5.0); Alkaline Phosphatase 77 U/L (45-117); Anion Gap 7 (5-15); BUN 14 mg/dL (7-18); BUN/Creat Ratio 16.2 RATIO (10-20); Calcium,Total 8.8 mg/dL (8.5-10.1); Chloride 105 mmol/L (98-107); Cholesterol 193 mg/dL (200); Creatinine, Serum 0.86 mg/dL (0.55-1.02); EST Glomerular Filtration Rate 70 mL/min (>60); Est Glom Filt Rate - Afr Amer 85 mL/min (>60); Globulin 3.3 g/dL (2.2-4.2); Glucose 117 mg/dL (74-106); High Density Lipoprotein 42 mg/dL; Potassium 3.9 mmol/L (3.5-5.1); Protein, Total 7.2 g/dL (6.4-8.2); Sodium Level 139 mmol/L (136-145); T4 Free Direct 0.93 ng/dL (0.76-1.46); Thyroid Stim Hormone (TSH) 2.68 uIU/mL (0.358-3.74); Triglycerides 147 mg/dL; Very Low Density Lipoprotein 29 mg/dL (5-40)
== END | disposition home or self-care (01) ==
PROVIDERS: PCP Nurse Practitioner Family; Visit Provider Nurse Practitioner Family
DX: I10 Essential (primary) hypertension (principal); E78.5 Hyperlipidemia, unspecified; R01.1 Cardiac murmur, unspecified; E03.9 Hypothyroidism, unspecified; R73.01 Impaired fasting glucose; E55.9 Vitamin D deficiency, unspecified
CPT/HCPCS: 36415; 80053; 80061; 82306; 84439; 84443

== ENCOUNTER → 2022-11-11 | Outpatient (CLI) | payer MEDICARE, OTHER, SELFPAY ==
--- NOTE | 2022-11-11 09:56 | RAD_ITS ---
STUDY: X-RAY - RIGHT KNEE REASON FOR EXAM: Female, 67 years old. R KNEE PAIN TECHNIQUE: 3 view(s) of the knee. COMPARISON: None. FINDINGS: Normal visualized distal femur. Normal visualized proximal tibia and fibula. Normal proximal tibiofibular articulation. There is mild degenerative arthrosis of the medial femorotibial compartment. Normal lateral femorotibial compartment. Normal patellofemoral articulation. There is a soft tissue prominence in the suprapatellar region suggesting a small volume joint effusion. The soft tissue structures are unremarkable. RAD/Knee 3 Views IMPRESSION: Degenerative arthrosis. Electronically Signed: Sean Modi MD at 21:56 EDT ,
== END | disposition home or self-care (01) ==
LOC: LAB 09:44 → RAD 09:55
PROVIDERS: PCP Nurse Practitioner Family; Referring Provider Nurse Practitioner Family; Visit Provider Nurse Practitioner Family
DX: M25.561 Pain in right knee (principal)
CPT/HCPCS: 73562

== ENCOUNTER → 2023-04-23 | Outpatient (CLI) | payer MEDICARE, OTHER, SELFPAY ==
[2023-04-23 10:05] LABS: Vitamin D,25 Hydroxy 64.8 ng/mL
[2023-04-23 10:13] LABS: ALB/GLOB Ratio 1.2 RATIO (0.9-2.4); AST(SGOT) 15 U/L (15-37); Alanine Aminotransfer ALT/SGPT 33 U/L (13-56); Albumin, Serum 4.1 g/dL (3.2-5.0); Alkaline Phosphatase 87 U/L (45-117); Anion Gap 6 (5-15); BUN 10 mg/dL (7-18); BUN/Creat Ratio 12.4 RATIO (10-20); Calcium,Total 9.1 mg/dL (8.5-10.1); Chloride 104 mmol/L (98-107); Cholesterol 186 mg/dL (200); Creatinine, Serum 0.81 mg/dL (0.55-1.02); EST Glomerular Filtration Rate 75 mL/min (>60); Est Glom Filt Rate - Afr Amer 91 mL/min (>60); Globulin 3.3 g/dL (2.2-4.2); Glucose 105 mg/dL (74-106); High Density Lipoprotein 48 mg/dL; Potassium 3.5 mmol/L (3.5-5.1); Protein, Total 7.4 g/dL (6.4-8.2); Sodium Level 140 mmol/L (136-145); Thyroid Stim Hormone (TSH) 2.97 uIU/mL (0.358-3.74); Triglycerides 154 mg/dL; Very Low Density Lipoprotein 31 mg/dL (5-40)
[2023-04-23 10:35] LABS: Microalbumin,Random Urine 20.3 mg/L (NO RANGE EST.); Microalbumin:Creatinine Ratio 49.6 mg/g CRE (<30 mg/g CRE)
== END | disposition home or self-care (01) ==
PROVIDERS: PCP Nurse Practitioner Family; Visit Provider Nurse Practitioner Family
DX: E78.5 Hyperlipidemia, unspecified (principal); E78.1 Pure hyperglyceridemia; E03.9 Hypothyroidism, unspecified; E55.9 Vitamin D deficiency, unspecified; I10 Essential (primary) hypertension; R73.01 Impaired fasting glucose
CPT/HCPCS: 36415; 80053; 80061; 82043; 82306; 82570; 84439; 84443

== ENCOUNTER → 2023-10-23 | Outpatient (CLI) | payer MEDICARE, OTHER, SELFPAY ==
[2023-10-23 10:23] LABS: Vitamin D,25 Hydroxy 57.6 ng/mL
[2023-10-23 14:39] LABS: ALB/GLOB Ratio 1.2 RATIO (0.9-2.4); AST(SGOT) 18 U/L (15-37); Alanine Aminotransfer ALT/SGPT 31 U/L (13-56); Albumin, Serum 3.8 g/dL (3.2-5.0); Alkaline Phosphatase 71 U/L (45-117); Anion Gap 4 (5-15); BUN 13 mg/dL (7-18); BUN/Creat Ratio 15.9 RATIO (10-20); Chloride 108 mmol/L (98-107); Cholesterol 201 mg/dL (200); Creatinine, Serum 0.82 mg/dL (0.55-1.02); EST Glomerular Filtration Rate 74 mL/min (>60); Est Glom Filt Rate - Afr Amer 90 mL/min (>60); Globulin 3.2 g/dL (2.2-4.2); Glucose 113 mg/dL (74-106); High Density Lipoprotein 46 mg/dL; Sodium Level 140 mmol/L (136-145); T4 Free Direct 0.97 ng/dL (0.76-1.46); Triglycerides 176 mg/dL; Very Low Density Lipoprotein 35 mg/dL (5-40)
[2023-10-23 14:56] LABS: Microalbumin,Random Urine 6.9 mg/L (NO RANGE EST.); Microalbumin:Creatinine Ratio 15.8 mg/g CRE (<30 mg/g CRE)
== END | disposition home or self-care (01) ==
LOC: LAB 08:52
PROVIDERS: PCP Nurse Practitioner Family; Referring Provider Nurse Practitioner Family; Visit Provider Nurse Practitioner Family
DX: E78.5 Hyperlipidemia, unspecified (principal); E03.9 Hypothyroidism, unspecified; E55.9 Vitamin D deficiency, unspecified; I10 Essential (primary) hypertension; R73.01 Impaired fasting glucose
CPT/HCPCS: 36415; 80053; 80061; 82043; 82306; 82570; 84439; 84443

== ENCOUNTER → 2024-04-21 | Outpatient (CLI) | payer MEDICARE, OTHER, SELFPAY ==
[2024-04-21 11:14] LABS: Vitamin D,25 Hydroxy 60.6 ng/mL
[2024-04-21 11:37] LABS: ALB/GLOB Ratio 1.1 RATIO (0.9-2.4); AST(SGOT) 17 U/L (15-37); Alanine Aminotransfer ALT/SGPT 32 U/L (13-56); Albumin, Serum 3.9 g/dL (3.2-5.0); Alkaline Phosphatase 75 U/L (45-117); Anion Gap 4 (5-15); BUN 12 mg/dL (7-18); Calcium,Total 8.7 mg/dL (8.5-10.1); Chloride 106 mmol/L (98-107); Cholesterol 169 mg/dL (200); EST Glomerular Filtration Rate 76 mL/min (>60); Est Glom Filt Rate - Afr Amer 92 mL/min (>60); Globulin 3.6 g/dL (2.2-4.2); Glucose 101 mg/dL (74-106); High Density Lipoprotein 49 mg/dL; Potassium 3.9 mmol/L (3.5-5.1); Protein, Total 7.5 g/dL (6.4-8.2); Sodium Level 139 mmol/L (136-145); T4 Free Direct 0.98 ng/dL (0.76-1.46); Triglycerides 158 mg/dL; Very Low Density Lipoprotein 32 mg/dL (5-40)
[2024-04-21 11:59] LABS: Microalbumin,Random Urine 9.6 mg/L (NO RANGE EST.); Microalbumin:Creatinine Ratio 22.5 mg/g CRE (<30 mg/g CRE)
[2024-04-21 13:06] LABS: Hemoglobin A1c 5.7 % (3.8-5.6)
== END | disposition home or self-care (01) ==
PROVIDERS: PCP Nurse Practitioner Family; Referring Provider Nurse Practitioner Family; Visit Provider Nurse Practitioner Family
DX: R73.01 Impaired fasting glucose (principal); I10 Essential (primary) hypertension; E78.5 Hyperlipidemia, unspecified; E55.9 Vitamin D deficiency, unspecified; E03.9 Hypothyroidism, unspecified
CPT/HCPCS: 36415; 80053; 80061; 82043; 82306; 82570; 83036; 84439; 84443

== ENCOUNTER → 2024-06-03 | Outpatient (CLI) | payer MEDICARE, OTHER, SELFPAY ==
--- NOTE | 2024-06-03 10:09 | BI_ITS ---
MAMMOGRAPHY - BILATERAL SCREENING REASON FOR EXAM: Female, 69 years old. Routine annual screening examination. PERTINENT HISTORY: Non-contributory. Prior left needle biopsies. TECHNIQUE: Digital bilateral breast paz (3D mammographic acquisition) in the CC and MLO projections. 2-D mediolateral oblique (MLO) and craniocaudad (CC) views of both breasts were obtained. CAD: Full Field Digital Mammography with Computer Added Detection was performed. COMPARISON: Comparison is made with prior study dated October 17, 2021 and September 17, 2019. FINDINGS: Breast Composition: The breasts are heterogeneously dense, which may obscure small masses. There are no dominant masses or suspicious calcifications. Once again, a tissue clip marker is seen in the upper lateral aspect of the left breast as well as in the upper central portion of the left breast. No other significant abnormalities are identified. There has been no significant change since the prior study. BI/SCRN MAMM (CAD)W/PAZ BILAT IMPRESSION: Stable bilateral screening mammogram. Yearly follow-up mammogram recommended. (A) ASSESSMENT CATEGORY: BIRADS Category 2: Benign. A letter regarding these results will be sent to the patient by the facility within 30 days. Approximately 10% of breast cancers are not detected by mammography. A normal mammogram should not delay biopsy of a clinically suspicious abnormality. [id number] Electronically Signed: Cesario Tavares MD at 11:12 EST ,
--- NOTE | 2024-06-03 10:19 | BD_ITS ---
STUDY: DUAL ENERGY X-RAY ABSORPTIOMETRY / DXA REASON FOR EXAM: Female, 69 years old. [id number] TECHNIQUE: Bone Mineral Density (BMD) measurements of lumbar spine and bilateral hips were obtained. COMPARISON: None. FINDINGS: Lumbar Spine (L1-L4): g/cm2 (1.133) / T-score (0.8) / Z-score (2.7) Findings are suggestive of normal bone density with a low fracture risk. Left Femur Total: g/cm2 (1.005) / T-score (0.5) / Z-score (1.9) Left Femoral Neck: g/cm2 (0.802) / T-score (-0.4) / Z-score (1.2) Right Femur Total: g/cm2 (0.959) / T-score (0.1) / Z-score (1.5) Right Femoral Neck: g/cm2 (0.744) / T-score (-0.9) / Z-score (0.7) BD/Dexa Bone Density Study IMPRESSION: The patient is considered normal as outlined below according to World Darrell Organization (WHO) criteria with a low fracture risk. Reference Information: The T-score is the number of standard deviations above or below the standard which is normal for young adults at their peak bone mineral density. The World Health Organization (WHO) interprets the T-scores as follows: Above -1 Normal bone density Between -1 and -2.5 Osteopenia Equal to / or below -2.5 Osteoporosis As a practical clinical guideline, osteopenia may be graded as follows: Mild -1 through -1.5 Moderate -1.6 through -2.0 Severe -2.1 through -2.4 The Z-score is the number of standard deviations above or below age-matched controls. A Z-score of less than -1.5 would be considered abnormal. References: 1. NIH Osteoporosis and Related Bone Diseases www osteo.org 2. International Society for Clinical Densitometry www iscd.org 3. National Osteoporosis Foundation www nof.org Electronically Signed: Cesario Tavares MD at 13:22 EST ,
== END | disposition home or self-care (01) ==
LOC: OPBD 10:08
PROVIDERS: PCP Nurse Practitioner Family; Referring Provider Nurse Practitioner Family; Visit Provider Nurse Practitioner Family
DX: Z12.31 Encounter for screening mammogram for malignant neoplasm of breast (principal); Z78.0 Asymptomatic menopausal state
CPT/HCPCS: 77063; 77067; 77080

== ENCOUNTER → 2024-10-08 | Outpatient (CLI) | payer MEDICARE, OTHER, SELFPAY ==
[2024-10-08 09:15] LABS: Microalbumin,Random Urine 12.2 mg/L (NO RANGE EST.); Microalbumin:Creatinine Ratio 94.6 mg/g CRE
[2024-10-08 09:27] LABS: ALB/GLOB Ratio 0.9 RATIO (0.9-2.4); AST(SGOT) 20 U/L (<=31); Alanine Aminotransfer ALT/SGPT 19 U/L (<=34); Albumin, Serum 3.3 g/dL (3.4-4.8); Alkaline Phosphatase 52 U/L (35-104); Anion Gap 12 (5-15); BUN 14 mg/dL (4-19); Calcium,Total 7.1 mg/dL (7.6-11.0); Carbon Dioxide 21.4 mmol/L (21.0-32.0); Chloride 106 mmol/L (98-108); Cholesterol 138 mg/dL (<=200); Creatinine, Serum 0.74 mg/dL (0.70-1.20); EST Glomerular Filtration Rate 88 (>60); Globulin 3.8 g/dL (2.2-4.2); Glucose 117 mg/dL (70-99); High Density Lipoprotein 45 mg/dL; Low Density Lipoprotein Calc. 71 mg/dL; Potassium 3.9 mmol/L (3.3-5.1); Protein, Total 7.1 g/dL (5.9-8.4); Sodium Level 140 mmol/L (133-145); Thyroid Stim Hormone (TSH) 0.434 uIU/mL (0.300-4.200); Total Bilirubin 0.26 mg/dL (0.00-1.30); Triglycerides 110 mg/dL; Very Low Density Lipoprotein 22 mg/dL (5-40); Vitamin D,25 Hydroxy 32.9 ng/mL (30-100); cholesterol:hdl ratio screen 3.07
== END | disposition home or self-care (01) ==
LOC: LAB 07:49
PROVIDERS: PCP Nurse Practitioner Family; Referring Provider Nurse Practitioner Family; Visit Provider Nurse Practitioner Family
DX: I10 Essential (primary) hypertension (principal); E78.5 Hyperlipidemia, unspecified; R73.01 Impaired fasting glucose; E03.9 Hypothyroidism, unspecified; E55.9 Vitamin D deficiency, unspecified
CPT/HCPCS: 36415; 80053; 80061; 82043; 82306; 82570; 84439; 84443

== ENCOUNTER → 2025-04-20 | Outpatient (CLI) | payer MEDICARE, OTHER, SELFPAY ==
[2025-04-20 09:56] LABS: AST(SGOT) 22 U/L (<=31); Alanine Aminotransfer ALT/SGPT 26 U/L (<=34); Albumin, Serum 4.4 g/dL (3.4-4.8); Alkaline Phosphatase 65 U/L (35-104); Anion Gap 11 (5-15); BUN 12 mg/dL (4-19); BUN/Creat Ratio 13.2 RATIO (10-20); Calcium,Total 9.0 mg/dL (7.6-11.0); Carbon Dioxide 25.2 mmol/L (21.0-32.0); Chloride 104 mmol/L (98-108); Cholesterol 158 mg/dL (<=200); Globulin 2.8 g/dL (2.2-4.2); Glucose 114 mg/dL (70-99); Low Density Lipoprotein Calc. 81 mg/dL; Potassium 3.8 mmol/L (3.3-5.1); Triglycerides 147 mg/dL; Very Low Density Lipoprotein 29 mg/dL (5-40); Vitamin D,25 Hydroxy 42.4 ng/mL (30-100); cholesterol:hdl ratio screen 3.32
[2025-04-21 00:15] LABS: Creatinine, Urine (random) 112.00 mg/dL (28.00-217.00); Microalbumin,Random Urine 48.9 mg/L (<20 mg/L)
== END | disposition home or self-care (01) ==
LOC: LAB 08:27
PROVIDERS: PCP Nurse Practitioner Family; Referring Provider Nurse Practitioner Family; Visit Provider Nurse Practitioner Family
DX: I10 Essential (primary) hypertension (principal); E78.5 Hyperlipidemia, unspecified; R73.01 Impaired fasting glucose; E03.9 Hypothyroidism, unspecified; E55.9 Vitamin D deficiency, unspecified
CPT/HCPCS: 36415; 80053; 80061; 82043; 82306; 82570; 83036; 84439; 84443

== ENCOUNTER → 2025-06-08 | Outpatient (CLI) | payer MEDICARE, OTHER, SELFPAY ==
--- NOTE | 2025-06-08 08:09 | BI_ITS ---
EXAM: SCRN MAMM (CAD)W/PAZ BILAT DATE: 06/08/2025 CLINICAL HISTORY: F, Age 70 y/o , SCREENING TECHNIQUE: Procedure Code: [id number] Modality: MG Procedure: SCRN MAMM (CAD)W/PAZ BILAT COMPARISON: Prior exam(s) dated 06/03/2024 and 10/17/2021. FINDINGS: TISSUE DENSITY: The breasts are heterogeneously dense, which may obscure small masses. Bilateral Breast Mammographic Findings: No significant masses, calcifications or other abnormalities are identified. Benign round microcalcifications are seen in both breasts. 2 radiopaque clips are seen in the left breast. The biopsies were benign. Post biopsy sites are stable. BI/SCRN MAMM (CAD)W/PAZ BILAT IMPRESSION: Benign screening mammogram. OVERALL FINAL ASSESSMENT BI-RADS 2: BENIGN RECOMMENDATION: Routine annual follow-up in 1 Year Additional Recommendation none A letter with findings and recommendations will be mailed to the patient. Reading Location: [id number]
== END | disposition home or self-care (01) ==
PROVIDERS: PCP Nurse Practitioner Family; Referring Provider Nurse Practitioner Family; Visit Provider Nurse Practitioner Family
DX: Z12.31 Encounter for screening mammogram for malignant neoplasm of breast (principal)
CPT/HCPCS: 77063; 77067